=== PATIENT | female | born 1990 | race Caucasian/White ===

== ENCOUNTER → 2018-05-30 15:19 | Outpatient (CLI) | payer BC, OTHER, SELFPAY ==
[2018-05-30 15:29] LABS: Microscopic, Urine URINE MICROSCOPIC (MICROSCOPIC)
[2018-05-30 16:19] LABS: Basophils % 0.3 % (0.1-2.0); Eosinophils # 0.1 K/mm3 (0.0-0.4); Eosinophils % 0.8 % (0.1-12.0); Hematocrit 40.5 % (37.0-47.0); Hemoglobin 12.7 g/dL (12.2-16.2); Lymphocytes # 2.8 K/mm3 (0.7-4.5); Lymphocytes % 29.8 % (10-50); Mean Corpuscular HGB Conc 31.3 g/dL (31.8-35.4); Mean Corpuscular Hemoglobin 29.7 pg (27.0-31.2); Mean Corpuscular Volume 95.1 fl (81-99); Mean Platelet Volume 9.4 fl (7.4-10.4); Monocytes # 0.4 K/mm3 (0.1-1.0); Platelet Count 179 K/mm3 (142-424); Red Blood Count 4.26 M/mm3 (4.20-5.40); Red Cell Distribution Width 13.3 % (11.5-17.5); White Blood Count 9.3 K/mm3 (4.8-10.8)
[2018-05-30 17:17] LABS: Appearance,Urine SL CLOUDY (Clear); Bilirubin,Urine Negative (Negative); Blood, Urine TRACE-I (Negative); Color,Urine YELLOW (Yellow); Glucose,Urine (UA) Negative (Negative); Ketones,Urine Negative (Negative); Leukocyte Esterase,Urine Negative (Negative); Nitrate,Urine POSITIVE (Negative); Protein,Urine Negative (Negative); Specific Gravity, Urine 1.025 (1.005-1.030); Urobilinogen,Urine 0.2 EU/dl (0.2)
[2018-05-30 17:58] LABS: Alanine Aminotransferase 15 U/L (12-78); Albumin/Globulin Ratio 1.2 (1.1-1.8); Alkaline Phosphatase 79 U/L (46-116); Anion Gap 12.8 mEq/L (5-15); Aspartate Amino Transferase 7 U/L (15-37); Bilirubin,Total 0.4 mg/dL (0.2-1.0); Blood Urea Nitrogen 13 mg/dL (7-18); Calcium 9.2 mg/dL (8.5-10.1); Carbon Dioxide 30 mmol/L (21.0-32.0); Chloride 102 mmol/L (98-107); Creatinine,Serum 0.64 mg/dL (0.55-1.02); Estimated Glomerular Filt Rate 109 ml/min (>60); Free Thyroxine Index 2.9 ug/dL (5.93-13.13); GFR (African American) 132 ML/MIN (>60); Globulin 3.4 gm/dl (1.3-3.2); Glucose 93 mg/dL (74-106); Potassium 3.8 mmoL/L (3.5-5.1); Sodium 141 mmol/L (136-145); T4 (Thyroxine) 8.5 ug/dl (4.7-13.3); Thyroid Stimulating Hormone 1.62 uIU/ml (0.358-3.740); Total Protein,Serum 7.4 gm/dL (6.4-8.2); Triiodothryronine (T3) Uptake 34 % (31-39)
[2018-05-30 19:00] LABS: Erythrocyte Sedimentation Rate 18 mm/hr (0-20)
[2018-05-30 19:02] LABS: Bacteria,Urine 3+ /lpf
== END ==
PROVIDERS: Visit Provider Nurse Practitioner Family
DX: R63.6 Underweight (principal); N39.0 Urinary tract infection, site not specified; M25.50 Pain in unspecified joint
CPT/HCPCS: 36415; 80053; 81001; 84436; 84443; 84479; 85025; 85651; 87086; 87088; 87186

== ENCOUNTER → 2018-07-03 21:18 | Outpatient (CLI) | payer BC, SELFPAY | PROVIDERS: Visit Provider Nurse Practitioner Family | DX: J02.9 Acute pharyngitis, unspecified (principal) ==

== ENCOUNTER → 2018-10-12 11:52 | Outpatient (CLI) | payer BC, SELFPAY ==
[2018-10-13 18:06] LABS: Hep A Ab, IgM Negative (Negative); Hepatitis B Core Antibody IgM Negative (Negative); Hepatitis B Surface Antigen Negative (Negative)
[2018-10-13 18:30] LABS: HIV Screen 4th Generation wRfx Non Reactive (Non Reactive); Hepatitis C Antibody <0.1 s/co ratio (0.0-0.9); Rapid Plasma Reagin Ab Titer Non Reactive (NonRea<1:1)
[2018-10-15 07:01] LABS: Neisseria gonorrhoeae, NAA Negative (Negative)
== END ==
PROVIDERS: Visit Provider Nurse Practitioner Family
DX: N76.0 Acute vaginitis (principal)
CPT/HCPCS: 36415; 80074; 86592; 86703; 87491; 87591; G0432

== ENCOUNTER → 2019-08-29 14:19 | Outpatient (CLI) | payer MEDICAID, SELFPAY ==
--- NOTE | 2019-08-29 14:19 | US_ITS ---
PROCEDURE: US TRANSVAGINAL CLINICAL INDICATION: pelvic pain COMPARISON: No exams were available for comparison FINDINGS: UTERUS: 9cm x 6cmx 5cm with a combined endometrial thickness of 11.8mm LEFT OVARY: [id number] with a volume of 19.9ml. RIGHT OVARY: [id number] with a volume of 8.1ml. There are small bilateral ovarian follicles. Small amount of fluid is present in the cul-de-sac. IMPRESSION: Endometrial thickness upper limits of normal. Small amount of fluid in the cul-de-sac with small bilateral ovarian follicles. No dominant cyst or mass evident Dictated by: Satish Koroma MD 08/29/2019 15:51 Electronically signed by Satish Koroma MD in [place] 08/29/2019 15:51
== END ==
PROVIDERS: PCP Nurse Practitioner Family; Visit Provider Nurse Practitioner Obstetrics & Gynecology
DX: R10.2 Pelvic and perineal pain (principal)
CPT/HCPCS: 76830

== ENCOUNTER 2019-12-26 19:33 | Emergency (ER) | payer MEDICAID, SELFPAY ==
[2019-12-26 19:47] VITALS: BP 123/68; PULSE 80; RESP 16; TEMP 37.2; O2SAT 100; BMI 20.9
[2019-12-26 20:04] VITALS: BP 123/68; PULSE 80; RESP 16; TEMP 37.2; O2SAT 100; BMI 20.9
[2019-12-26 20:05] LABS: Apearance,Urine Cloudy (Clear); Color,Urine Dark Yellow (Yellow)
[2019-12-26 20:06] LABS: Bilirubin,Urine Negative (Negative); Blood, Urine Trace (Negative); Glucose,Urine (UA) Negative (Negative); Ketones,Urine Negative (Negative); PH,Urine 5.5 (5.0-8.5); Protein,Urine Negative (Negative); UTC Leukocyte Esterase,Urine Negative (Negative); UTC Nitrate,Urine Positive (Negative); Urobilinogen,Urine 1 EU/dl (0.2)
--- NOTE | 2019-12-26 20:11 | HMH.EDUTC ---
[facility] [place] Clinical Impression: UTI (urinary tract infection) Qualifiers: Urinary tract infection type: site unspecified Hematuria presence: without hematuria Qualified Code(s): N39.0 - Urinary tract infection, site not specified Cellulitis Qualifiers: Site of cellulitis: unspecified site Qualified Code(s): L03.90 - Cellulitis, unspecified Disposition: Home, Self-Care Condition on Discharge: Good Instructions: DI for Cellulitis -- Adult, Trimethoprim/Sulfamethoxazole (Alternative Therapy), Urinary Tract Infection, Cellulitis, DI for Urinary Tract Infection (UTI) Additional Instructions: *Increase fluids. Water not Soda or Tea *Start antibiotic immediately and be sure to take as ordered for the FULL length of time although you should start to see improvement over the next 48 hours *Pyridium as needed Remember this medication will turn your urine [place]. This is normal but it will stain what ever it gets on *You should not use Pyridium for more than 48 hours. If so , follow up with your primary physician to review urine culture and ensure that antibiotic is adequate for infection *Be SURE to follow up anytime for new or worsening symptoms with your family doctor. AND in 48 hours for urine culture results with your family doctor, if you do not have a doctor then you may call back to the [facility] for urine culture results and further treatment. We do recommend that you choose and establish care with a Primary Care Physician. AND follow up with them in 10-14 days to repeat UA to ensure infection is resolved and blood no longer present *Be sure to let your PCP know that we sent urine cultures from the [facility] so they can follow up to ensure that you area the on the correct antibiotic Call your doctor office and make appointment for 48 hours (2 days from today) to follow up and get the results of your urine culture and further treatment You was given outpatient order for venous doppler make sure that you answer your phone and bring this order with you when they call Straight to ER if any life threatening symptoms Prescriptions: Sulfamethoxazole/Trimethoprim [Bactrim DS tablet] 1 each PO BID 10 Days #20 tab Transmission Status: Received by [facility] #[id number] Phenazopyridine HCl [Pyridium 200mg Tablet] 200 pow PO TID #6 tab Transmission Status: Received by [facility] #[id number] Referrals: Mariana,Janay L, [employer] INSPECTOR [Primary Care Provider] - Time of Disposition: 20:32 Medical Decision Making - Joel Inquiry Pt receiving controlled substance: No Joel was queried for this patient: No Vital Signs: 12/26/19 19:47 12/26/19 20:04 Temperature 98.9 F 98.9 F Temperature Source Oral Oral Pulse Rate [Left Radial] 80 80 Respiratory Rate 16 16 Blood Pressure [Right Arm] 123/68 123/68 Blood Pressure Mean [Right Arm] 86 86 Blood Pressure Source [Right Arm] Automatic Cuff Automatic Cuff Blood Pressure Position [Right Arm] Sitting Sitting 02 Sat by Pulse Oximetry 100 100 Oxygen Delivery Method Room Air Room Air - Lab Data Lab results reviewed: Yes: I reviewed the patient's lab results. Lab Results 12/26/19 19:55: Urine Color Dark yellow, Urine Appearance Cloudy, Urine pH 5.5, Ur Specific [place] 1.020, Urine Protein Negative, Urine Glucose (UA) Negative, Urine Ketones Negative, Urine Blood Trace, Urine Nitrate Positive A, Urine Bilirubin Negative, Urine Urobilinogen 1, Ur Leukocyte Esterase Negative Orders (Tests/Meds): ED MEDICATIONS Discontinued Medications Generic Name Dose Route Start Last Admin Trade Name Freq PRN Reason Stop Dose Admin Methylprednisolone Sodium Succinate 125 mg 12/26/19 20:11 Solu-Medrol 125mg/2ml Vial IM 12/26/19 20:12 ONCE ONE ORDERS Category Date Time Status Urine Culture Stat Micro 12/26/19 20:06 [place] [facility] [place] - General Stated complaint: Poss UTI, rash on leg Time Seen by Provider: 12/26/19 20:11 Mode of Arrival: Ambulatory Source of Information: Gwen
[2019-12-26 20:30] VITALS: BP 123/68; PULSE 80; RESP 16; TEMP 37.2; O2SAT 100
== END 2019-12-26 20:35 | disposition home or self-care (01) ==
PROVIDERS: Emergency Provider Nurse Practitioner; PCP Nurse Practitioner Family
DX: N30.00 Acute cystitis without hematuria (principal); L03.116 Cellulitis of left lower limb; Z88.0 Allergy status to penicillin; F41.8 Other specified anxiety disorders; F17.210 Nicotine dependence, cigarettes, uncomplicated
CPT/HCPCS: 81003; 87086; 87088; 87186; 96372; 99202

== ENCOUNTER → 2019-12-27 11:37 | Outpatient (CLI) | payer MEDICAID, SELFPAY ==
--- NOTE | 2019-12-27 | CA_ITS ---
APPROVED REPORT Right Lower Extremity Venous Study for DVT. 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 States she noticed red streaking and rash on lateral aspect of right calf 12/23/19. She states there is a burning sensation present. Vein Imaging CFV (R): compressive, spontaneous, phasic, augmentation FEM (R): compressive, spontaneous, phasic, augmentation POP (R): compressive, spontaneous, phasic, augmentation PTV (R): Compressible GSV (R): compressive, spontaneous, phasic, augmentation SSV (R): Compressible Peroneals (R):Compressible GAS (R): Compressible Findings No evidence of DVT or superficial thrombophlebitis in the veins scanned of the right lower extremity. Conclusion No evidence of DVT or superficial thrombophlebitis in the veins scanned of the right lower extremity. Electronically signed by : Satish Koroma MD 12/30/2019 17:23:44
== END ==
PROVIDERS: PCP Nurse Practitioner Family; Referring Provider Nurse Practitioner Family; Visit Provider Nurse Practitioner Family
DX: M79.661 Pain in right lower leg (principal)
CPT/HCPCS: 93971

== ENCOUNTER 2020-03-09 13:02 | Emergency (ER) | payer MEDICAID, SELFPAY ==
[2020-03-09 13:17] VITALS: BP 112/72; PULSE 83; RESP 14; TEMP 37; O2SAT 98
[2020-03-09 13:31] LABS: Apearance,Urine Cloudy (Clear); Color,Urine Amber (Yellow); Glucose,Urine (UA) Negative (Negative); Protein,Urine 1+ (Negative)
[2020-03-09 13:32] LABS: Bilirubin,Urine 1+ (Negative); Blood, Urine Trace (Negative); Ketones,Urine Negative (Negative); UTC Leukocyte Esterase,Urine 1+ (Negative); UTC Nitrate,Urine Positive (Negative); Urobilinogen,Urine 1 EU/dl (0.2)
--- NOTE | 2020-03-09 13:37 | HMH.EDUTC ---
[facility] [place] Clinical Impression: UTI (urinary tract infection) Qualifiers: Urinary tract infection type: site unspecified Hematuria presence: without hematuria Qualified Code(s): N39.0 - Urinary tract infection, site not specified Disposition: Home, Self-Care Condition on Discharge: Good Instructions: Urinary Tract Infection, DI for Urinary Tract Infection (UTI) Additional Instructions: Drink plenty of fluids. Take tylenol or ibuprofen for pain or fever. Take the medications as directed. Follow up with your regular doctor. GO TO THE ER FOR ANY WORSENING SYMPTOMS The pyridium will make your urine turn orange, this is an expected side effect. It will stain your clothes if it comes into contact with them. Prescriptions: Ondansetron [Zofran 4mg ODT] 4 mg PO Q8HP PRN #20 tab.rapdis PRN Reason: Nausea Transmission Status[id number] Ciprofloxacin HCl [Cipro 500mg Tab] 500 mg PO BID 7 Days #14 tab Transmission Status: [id number] Phenazopyridine HCl [Pyridium 200mg Tablet] 200 pow PO TID #6 tab Transmission Status: [id number] Referrals: Janay Peña APRN [Primary Care Provider] - Time of Disposition: 13:40 Medical Decision Making - Medical Records Medical records reviewed: No: I reviewed the patient's medical records. - Joel Inquiry Pt receiving controlled substance: No Vital Signs: 03/09/20 13:17 03/09/20 13:42 Temperature 98.6 F 98.6 F Temperature Source Oral Pulse Rate 83 Pulse Rate [Left Brachial] 83 Respiratory Rate 14 14 Blood Pressure 112/72 Blood Pressure [Left Arm] 112/72 Blood Pressure Mean [Left Arm] 85 Blood Pressure Source [Left Arm] Automatic Cuff Blood Pressure Position [Left Arm] Sitting 02 Sat by Pulse Oximetry 98 Oxygen Delivery Method Room Air - Lab Data Lab results reviewed: Yes: I reviewed the patient's lab results. Lab Results 03/09/20 13:23: Urine Color Janny, Urine Appearance Cloudy, Urine pH 7.0, Ur Specific [place] 1.020, Urine Protein 1+, Urine Glucose (UA) Negative, Urine Ketones Negative, Urine Blood Trace, Urine Nitrate Positive A, Urine Bilirubin 1+ A, Urine Urobilinogen 1, Ur Leukocyte Esterase 1+ A [facility] [place] HPI - General Stated complaint: uti Time Seen by Provider: 03/09/20 13:20 Mode of Arrival: Ambulatory Source of Information: Patient Limitations: No Limitations Description of Symptoms (Recalled from Triage Doc. by RN): PATIENT C/O URINARY HESITANCY, BURNING WITH URINATION, AND FOUL SMELLING URINE SINCE YESTERDAY HEENT Symptoms (Recalled from RN notes): No Resp Symptoms (Recalled from RN notes): No Skin Symptoms (Recalled from RN notes): No MS Symptoms (Recalled from RN notes): No Functional Status (Recalled from RN notes): WNL - History of Present Illness Provider Complaint: She c/o dysuria and low back pain since yesterday. - Related Data Home Medications Medication Instructions Recorded Confirmed Buspirone HCl [Buspar 10mg 10 mg PO BID 03/09/20 03/09/20 tablet] Sertraline HCl [Zoloft 50mg tablet] 50 mg PO DAILY 03/09/20 03/09/20 Previous Rx's Medication Instructions Recorded Ciprofloxacin HCl [Cipro 500mg 500 mg PO BID 7 Days #14 tab 03/09/20 Tab] Ondansetron [Zofran 4mg ODT] 4 mg PO Q8HP PRN #20 tab.rapdis 03/09/20 Phenazopyridine HCl [Pyridium 200 pow PO TID #6 tab 03/09/20 200mg Tablet] Allergies Allergy/AdvReac Type Severity Reaction Status Date / Time Penicillins Allergy Intermediate I-HIVES Verified 09/30/19 11:32 - Worker's Comp Is this a Worker's Comp case?: No [facility] History - Hepatitis A Screen Drug use history?: No High risk sexual behaviors?: No History of sexually transmitted infection?: No Currently employed?: No Childcare worker?: No Do you have indoor plumbing?: Yes Do you have electricity?: Yes Attestation statement:: This patient has been screened for Hepatitis
[2020-03-09 13:42] VITALS: BP 112/72; PULSE 83; RESP 14; TEMP 37; O2SAT 98
== END 2020-03-09 13:45 | disposition home or self-care (01) ==
PROVIDERS: Emergency Provider Nurse Practitioner Family; PCP Nurse Practitioner Family
DX: N30.00 Acute cystitis without hematuria (principal); F41.8 Other specified anxiety disorders; F17.210 Nicotine dependence, cigarettes, uncomplicated; Z88.0 Allergy status to penicillin
CPT/HCPCS: 81003; 87086; 87088; 87186; 99201

== ENCOUNTER 2020-06-11 13:42 | Emergency (ER) | payer MEDICAID, SELFPAY ==
[2020-06-11 14:52] VITALS: BP 105/58; PULSE 74; RESP 14; TEMP 37; O2SAT 96; BMI 16.6
--- NOTE | 2020-06-11 15:11 | HMH.EDUTC ---
[facility] [place]ression: Viral syndrome Disposition: Home, Self-Care Condition on Discharge: Good Instructions: DI for Viral Syndrome Additional Instructions: Drink plenty of fluids. Take tylenol for pain or fever. Take the medications as directed. Follow up with your regular doctor. GO TO THE ER FOR ANY WORSENING SYMPTOMS Prescriptions: Ondansetron [Zofran 4mg ODT] 4 mg PO Q8HP PRN #12 tab.rapdis PRN Reason: Nausea Transmission Status: Received by [facility] [employer] [facility] # Azithromycin [Z-Rudolph 250mg Tab*] 250 mg PO UD DOSE PK #6 tab Transmission Status: Received by [employer] [facility] # Referrals: Janay Peña APRN [Primary Care Provider] - Time of Disposition: 15:17 Medical Decision Making - Medical Records Medical records reviewed: No: I reviewed the patient's medical records. - Joel Inquiry Pt receiving controlled substance: No Vital Signs: 06/11/20 14:52 06/11/20 15:27 Temperature 98.6 F 98.6 F Temperature Source Oral Pulse Rate 74 Pulse Rate [Right Brachial] 74 Respiratory Rate 14 14 Blood Pressure 105/58 L Blood Pressure [Right Arm] 105/58 L Blood Pressure Mean [Right Arm] 73 Blood Pressure Source [Right Arm] Automatic Cuff Blood Pressure Position [Right Arm] Sitting 02 Sat by Pulse Oximetry 96 Oxygen Delivery Method Room Air [facility] [place] - General Stated complaint: Cough, fever, vomiting Time Seen by Provider: 06/11/20 15:11 Mode of Arrival: Ambulatory Source of Information: Patient Limitations: No Limitations Description of Symptoms (Recalled from Triage Doc. by RN): PATIENT C/O HEADACHE X 1 WEEK, VOMITING, DECREASED APPETITE, NO TASTE/SMELL. REQUESTING COVID TEST HEENT Symptoms (Recalled from RN notes): Yes Resp Symptoms (Recalled from RN notes): No Skin Symptoms (Recalled from RN notes): No MS Symptoms (Recalled from RN notes): No Functional Status (Recalled from RN notes): WNL - History of Present Illness Provider Complaint: She is here needing a covid test. She reports a head ache on and off all week. And she has had decreased sense of taste and smell. - Related Data Home Medications Medication Instructions Recorded Confirmed Buspirone HCl [Buspar 10mg 10 mg PO BID 03/09/20 03/09/20 tablet] Sertraline HCl [Zoloft 50mg tablet] 50 mg PO DAILY 03/09/20 03/09/20 Previous Rx's Medication Instructions Recorded metronidazole 500 mg tablet 500 mg PO BID 7 Days #14 tab 06/08/20 Azithromycin [Z-Rudolph 250mg Tab*] 250 mg PO UD DOSE PK #6 tab 06/11/20 Ondansetron [Zofran 4mg ODT] 4 mg PO Q8HP PRN #12 tab.rapdis 06/11/20 Allergies Allergy/AdvReac Type Severity Reaction Status Date / Time Penicillins Allergy Intermediate I-HIVES Verified 04/30/20 09:02 - Worker's Comp Is this a Worker's Comp case?: No [facility] History - Hepatitis A Screen Drug use history?: No High risk sexual behaviors?: No History of sexually transmitted infection?: No Currently employed?: No Childcare worker?: No Do you have indoor plumbing?: Yes Do you have electricity?: Yes Attestation statement:: This patient has been screened for Hepatitis A risk factors. I have reviewed the patient's past medical history: Yes Medical History: Reports:: Anxiety, Depression Laterality Cases: Bilateral: Tonsillectomy Other Surgeries: Yes: Tubal Ligation Amputation: No Fractures: No Comment: Breast implants - Social History Smoking Status: Current every day smoker Tobacco Type: cigarettes # Packs/Day (cigarettes): 1 Alcohol Intake: never Alcohol Intake Frequency:: other Substance Use Type: denies use, marijuana, crack/cocaine Occupational Status: other Housing: house Household Members: family Comment: -nothing current. -she did do coke a few weeks ago at a [employer]. -first time in 18 years - Psychiatric History Pschychiatric History:: Reports:: Anxiety, Depression Family Hx:: Cancer, Diabetes, Heart Attack, Hypertensio
[2020-06-11 15:27] VITALS: BP 105/58; PULSE 74; RESP 14; TEMP 37; O2SAT 96
== END 2020-06-11 15:30 | disposition home or self-care (01) ==
PROVIDERS: Emergency Provider Nurse Practitioner Family; PCP Nurse Practitioner Family
DX: B34.9 Viral infection, unspecified (principal)
CPT/HCPCS: 99201; U0003

== ENCOUNTER → 2020-12-30 07:49 | Outpatient (CLI) | payer MEDICAID, SELFPAY ==
--- NOTE | 2020-12-30 08:10 | US_ITS ---
PROCEDURE: US GALLBLADDER CLINICAL INDICATION: RUQ PAIN COMPARISON: No exams were available for comparison FINDINGS: Pancreas: Unremarkable/Not well seen Liver: Unremarkable. There is appropriate direction of blood flow within a non dilated portal vein. Right kidney: Unremarkable appearing. No hydronephrosis. Gallbladder: No stones are evident. There is no gallbladder wall thickening. Common duct is normal in diameter measuring 2 millimeters. Small amount of sludge noted in the gallbladder.. IMPRESSION: Small amount of sludge in the gallbladder. Otherwise unremarkable gallbladder ultrasound. Dictated by: Polo Chow MD 12/30/2020 09:38 Polo Chow MD in [place] 12/30/2020 09:38
[2020-12-30 09:10] LABS: Basophils # 0.1 K/mm3 (0-0.2); Eosinophils # 0.2 K/mm3 (0.0-0.4); Eosinophils % 3.1 % (0.1-12.0); Hematocrit 37.1 % (37.0-47.0); Hemoglobin 12.7 g/dL (12.2-16.2); Lymphocytes # 1.7 K/mm3 (0.7-4.5); Lymphocytes % 32.4 % (10-50); Mean Corpuscular HGB Conc 34.3 g/dL (31.8-35.4); Mean Corpuscular Hemoglobin 30.7 pg (27.0-31.2); Mean Corpuscular Volume 89.7 fl (81-99); Mean Platelet Volume 9.6 fl (7.4-10.4); Monocytes # 0.3 K/mm3 (0.1-1.0); Monocytes % 5.2 % (1.7-9.3); Neutrophils % 58.2 % (37.0-80.0); Platelet Count 158 K/mm3 (142-424); Red Blood Count 4.13 M/mm3 (4.20-5.40); Red Cell Distribution Width 12.5 % (11.5-17.5); White Blood Count 5.2 K/mm3 (4.8-10.8)
[2020-12-30 10:44] LABS: Alanine Aminotransferase 10 U/L (12-78); Albumin/Globulin Ratio 1.5 (1.1-1.8); Alkaline Phosphatase 54 U/L (38-126); Amylase 54 U/L (30-110); Anion Gap 8.2 mEq/L (5-15); Aspartate Amino Transferase 18 U/L (14-36); Bilirubin,Total 0.5 mg/dl (0.2-1.3); Blood Urea Nitrogen 11 mg/dl (7-17); Calcium 9.1 mg/dl (8.4-10.2); Carbon Dioxide 30 mmol/L (22.0-30.0); Chloride 105 mmol/L (98-107); Estimated Glomerular Filt Rate 97 ml/min (>60); GFR (African American) 117 ML/MIN (>60); Globulin 2.6 g/dL (1.3-3.2); Glucose 85 mg/dl (74-100); Lipase 75 U/L (23-300); Potassium 4.2 mmoL/L (3.5-5.1); Sodium 139 mmol/L (136-145); Total Protein,Serum 6.6 g/dl (6.3-8.2)
== END ==
PROVIDERS: PCP Nurse Practitioner Family; Visit Provider Internal Medicine Adolescent Medicine
DX: R10.11 Right upper quadrant pain (principal)
CPT/HCPCS: 36415; 76705; 80053; 82150; 83690; 85025

== ENCOUNTER → 2021-01-13 10:27 | Outpatient (CLI) | payer MEDICAID, SELFPAY ==
--- NOTE | 2021-01-13 10:30 | NM_ITS ---
PROCEDURE: NM HEPATOBILIARY W PHARM CLINICAL INDICATION: RUQ PAIN Right upper quadrant pain COMPARISON: No exams were available for comparison TECHNIQUE: DOSE: 8.12 mCi technetium Choletec 1.2 mcg of CCK FINDINGS: Homogeneous activity is present within the hepatic parenchyma. Activity is present in the gallbladder by 5 minutes. Activity is present in the small bowel by 5 minutes. The gallbladder ejection fraction is calculated to be 87 percent. CCK-The patient reported symptoms of pinching during CCK infusion. IMPRESSION: Unremarkable hepatobiliary scan with normal gallbladder ejection fraction Dictated by: Satish Koroma MD 01/13/2021 13:25 Satish Koroma MD in [place] 01/13/2021 13:25
== END ==
PROVIDERS: PCP Nurse Practitioner Family; Visit Provider Internal Medicine Adolescent Medicine
DX: R10.11 Right upper quadrant pain (principal)
CPT/HCPCS: 78227; A9537; J2805

== ENCOUNTER 2021-02-24 07:58 | Emergency (ER) | payer MEDICAID, SELFPAY ==
[2021-02-24 07:59] VITALS: BP 103/59; PULSE 64; RESP 18; TEMP 36.6; O2SAT 97; BMI 21.2
[2021-02-24 08:14] LABS: Microscopic, Urine URINE MICROSCOPIC (MICROSCOPIC)
[2021-02-24 08:17] LABS: Appearance,Urine CLEAR (Clear); Bilirubin,Urine Negative (Negative); Blood, Urine 3+ (Negative); Color,Urine YELLOW (Yellow); Glucose,Urine (UA) Negative (Negative); Ketones,Urine Negative (Negative); Leukocyte Esterase,Urine 2+ (Negative); Nitrate,Urine POSITIVE (Negative); Protein,Urine 2+ (Negative); Specific Gravity, Urine >= 1.030 (1.005-1.030)
[2021-02-24 08:19] LABS: Urine Pregnancy, HCG Qual. Negative (Negative)
[2021-02-24 08:29] LABS: Bacteria,Urine Trace /lpf; RBC,Urine 20-50 #/hpf (0-3)
--- NOTE | 2021-02-24 08:29 | HMH.EDUROGF ---
ED Disposition Clinical Impression: Acute UTI Disposition: Home, Self-Care Condition on Discharge: Good Instructions: DI for Urinary Tract Infection (UTI) Prescriptions: Nitrofurantoin Monohyd/M-Cryst [Macrobid 100 mg Capsule] 100 mg PO BID #14 cap Transmission Status: Pending to [facility] [employer] #[id number] Referrals: Vaibhav Ash MD [Primary Care Provider] - 3 days - Critical Care Critical Care Time: No Attestation: On 02/24/21, the high probability of a clinically significant, sudden or life threatening deterioration of the following system(s) required my full and direct attention, intervention and personal management. The time I documented below is in addition to time spent performing reported procedures but includes the following listed in this critical care notation. Medical Decision Making - Medical Records Medical records reviewed: Yes: I reviewed the patient's medical records. - Joel Inquiry Pt receiving controlled substance: No Vital Signs: 02/24/21 07:59 Temperature 97.8 F Temperature Source Oral Pulse Rate [Right] 64 Respiratory Rate 18 Blood Pressure [Right Arm] 103/59 L Blood Pressure Mean [Right Arm] 73 02 Sat by Pulse Oximetry 97 Oxygen Delivery Method Room Air - Lab Data Lab results reviewed: Yes: I reviewed the patient's lab results. Lab Results 02/24/21 08:04: Urine Color Yellow, Urine Appearance Clear, Urine pH 6.0, Ur Specific [place] >= 1.030, Urine Protein 2+, Urine Glucose (UA) Negative, Urine Ketones Negative, Urine Blood 3+, Urine Nitrate Positive, Urine Bilirubin Negative, Urine Urobilinogen 1.0, Ur Leukocyte Esterase 2+ A 02/24/21 08:04: Urine HCG, Qual Negative Orders (Tests/Meds): ED MEDICATIONS Discontinued Medications Generic Name Dose Route Start Last Admin Trade Name Freq PRN Reason Stop Dose Admin Nitrofurantoin Macrocrystals 100 mg 02/24/21 08:26 Nitrofurantoin 100mg Capsule PO 02/24/21 08:27 ONCE ONE ORDERS Category Date Time Status Urinalysis and Microscopic Stat Lab 02/24/21 08:04 Results Urine Culture Stat Micro 02/24/21 08:04 Received Medical Decision Narrative: Patient with UTI here, given Macrobid. She appears well-hydrated. No flank pain, fever that would suggest pyelonephritis. Will discharge home with prescription for Macrobid and advised follow-up with PCP within the next several days for reevaluation. test negative. Nontender, benign abdomen. Female Urogenital HPI - General Chief complaint: Urogenital-Female Stated complaint: possible kidney infection, blood in urine Time Seen by Provider: 02/24/21 08:29 Mode of Arrival: Family Vehicle Limitations: No Limitations Description of Symptoms (Recalled from ER Triage Doc. by RN): Patient c/o painful urination with hematuria for the last three days. Patient denies and fevers and bodyaches. Patient reports history of UTI's. - History of Present Illness HPI Narrative: 30-year-old female with no significant past medical history who presents to the emergency department for foul-smelling urine, dysuria and decreased appetite for the last 3 days. She has had urinary tract infections before and this feels similarly. Yesterday she noticed some blood in her urine so became concerned about that. She has had a bilateral tubal ligation, no other abdominal pelvic surgeries. She denies any flank pain, vomiting, fever. No exacerbating or alleviating factors. No change in bowel habits. : No - Related Data Home Medications Medication Instructions Recorded Confirmed Buspirone HCl [Buspar 10mg 10 mg PO BID 03/09/20 02/18/21 tablet] Previous Rx's Medication Instructions Recorded sertraline 50 mg tablet 50 mg PO DAILY #30 tab 08/05/20 Nitrofurantoin Monohyd/M-Cryst 100 mg PO BID #14 cap 02/24/21 [Macrobid 100 mg Capsule] Allergies Allergy/AdvReac Type Severity Reaction Status Date / Time Penicillins Allergy Int
[2021-02-24 08:30] VITALS: BP 103/59; PULSE 64; RESP 18; TEMP 36.5; O2SAT 97
== END 2021-02-24 08:40 | disposition home or self-care (01) ==
PROVIDERS: Emergency Provider Emergency Medicine; PCP Internal Medicine Adolescent Medicine
DX: N30.01 Acute cystitis with hematuria (principal); F41.8 Other specified anxiety disorders; Z88.0 Allergy status to penicillin; Z79.899 Other long term (current) drug therapy
CPT/HCPCS: 81001; 81025; 87086; 87088; 87186; 99282

== ENCOUNTER → 2021-03-08 11:05 | Outpatient (CLI) | payer MEDICAID, SELFPAY | PROVIDERS: Visit Provider Surgery | DX: Z20.822 Contact with and (suspected) exposure to COVID-19 (principal) | CPT/HCPCS: U0003 ==

== ENCOUNTER 2021-03-11 18:08 | Emergency (ER) | payer MEDICAID, SELFPAY ==
[2021-03-11 20:59] VITALS: BP 00/00; PULSE 0; RESP 0; TEMP -17.7; TEMP 0
== END 2021-03-11 21:00 | disposition left against medical advice (07) ==
LOC: UTC 18:12
PROVIDERS: Emergency Provider Nurse Practitioner Family; PCP Internal Medicine Adolescent Medicine
DX: Z53.21 Procedure and treatment not carried out due to patient leaving prior to being seen by health care provider (principal)

== ENCOUNTER → 2021-03-23 17:40 | Outpatient (CLI) | payer MEDICAID, SELFPAY ==
[2021-03-23 19:03] LABS: Chloride 103 mmol/L (98-107); Potassium 3.8 mmoL/L (3.5-5.1); Sodium 139 mmol/L (136-145)
[2021-03-23 19:06] LABS: Alanine Aminotransferase 21 U/L (12-78); Albumin Level 3.6 g/dl (3.5-5.0); Albumin/Globulin Ratio 1.3 (1.1-1.8); Alkaline Phosphatase 68 U/L (38-126); Aspartate Amino Transferase 27 U/L (14-36); Bilirubin,Total 0.6 mg/dl (0.2-1.3); Blood Urea Nitrogen 13 mg/dl (7-17); Calcium 8.8 mg/dl (8.4-10.2); Carbon Dioxide 27 mmol/L (22.0-30.0); Estimated Glomerular Filt Rate 115 ml/min (>60); GFR (African American) 139 ML/MIN (>60); Globulin 2.7 g/dL (1.3-3.2); Glucose 173 mg/dl (74-100); Total Protein,Serum 6.3 g/dl (6.3-8.2)
[2021-03-23 19:09] LABS: Hematocrit 41.8 % (37.0-47.0); Hemoglobin 13.2 g/dL (12.2-16.2); Lymphocytes # 0.9 K/mm3 (0.7-4.5); Lymphocytes % 10.6 % (10-50); Mean Corpuscular HGB Conc 31.5 g/dL (31.8-35.4); Mean Corpuscular Hemoglobin 29.6 pg (27.0-31.2); Mean Corpuscular Volume 93.9 fl (81-99); Mean Platelet Volume 11.1 fl (7.4-10.4); Monocytes # 0.2 K/mm3 (0.1-1.0); Monocytes % 2.2 % (1.7-9.3); Neutrophils % 87.2 % (37.0-80.0); Platelet Count 226 K/mm3 (142-424); Red Blood Count 4.45 M/mm3 (4.20-5.40); Red Cell Distribution Width 13.3 % (11.5-17.5)
[2021-03-23 19:12] LABS: MANUAL DIFFERENTIAL MANUAL DIFFERENTIAL (MANUAL DIFF)
[2021-03-23 20:13] LABS: Anion Gap 12.8 mEq/L (5-15)
[2021-03-23 20:27] LABS: Lymphocytes % 14 % (10-50); Monocytes % 2 % (2-9); Neutrophils % 84 % (42-76); Platelet Estimate Normal; Total Cells Counted 100
== END ==
PROVIDERS: Visit Provider Nurse Practitioner Family
DX: R30.0 Dysuria (principal); R34 Anuria and oliguria
CPT/HCPCS: 80053; 85007; 85025; 87086; 87088; 87186

== ENCOUNTER → 2021-05-22 15:57 | Outpatient (CLI) | payer MEDICAID, SELFPAY | PROVIDERS: PCP Internal Medicine Adolescent Medicine; Visit Provider Nurse Practitioner Family | DX: Z20.822 Contact with and (suspected) exposure to COVID-19 (principal); U07.1 COVID-19 | CPT/HCPCS: C9803; U0003; U0005 ==

== ENCOUNTER 2021-09-02 13:17 | Outpatient (CLI) | payer MEDICAID, SELFPAY ==
[2021-09-02 13:45] VITALS: BP 155/91; PULSE 73; RESP 18; TEMP 36.3; O2SAT 99
[2021-09-02 14:35] VITALS: BP 96/68; PULSE 72; RESP 18; O2SAT 100
== END 2021-09-02 14:35 | disposition home or self-care (01) ==
LOC: INF 13:18
PROVIDERS: PCP Internal Medicine Adolescent Medicine; Visit Provider Internal Medicine Adolescent Medicine
DX: N39.0 Urinary tract infection, site not specified (principal); Z16.12 Extended spectrum beta lactamase (ESBL) resistance
CPT/HCPCS: 96365; J1335

== ENCOUNTER → 2021-09-03 11:33 | Outpatient (CLI) | payer MEDICAID, SELFPAY ==
[2021-09-03 11:57] VITALS: BP 113/68; PULSE 65; RESP 16; TEMP 36.8; O2SAT 99
[2021-09-03 12:23] VITALS: BP 113/64; PULSE 63; RESP 16; TEMP 36.9; O2SAT 100
== END ==
PROVIDERS: PCP Internal Medicine Adolescent Medicine; Visit Provider Internal Medicine Adolescent Medicine
DX: N39.0 Urinary tract infection, site not specified (principal); Z16.12 Extended spectrum beta lactamase (ESBL) resistance
CPT/HCPCS: 96365; J1335

== ENCOUNTER → 2021-09-04 09:43 | Outpatient (CLI) | payer MEDICAID, SELFPAY ==
[2021-09-04 10:04] VITALS: BP 99/66; PULSE 90; RESP 18; TEMP 36.9; O2SAT 97
--- NOTE | 2021-09-04 10:35 | PC.NURSE ---
pt on day 3- needs new iv requesting this one be taken out and given a break and them restart new one tomorrow- iv d/c a this time. cathlon tip intact.
== END ==
PROVIDERS: PCP Internal Medicine Adolescent Medicine; Visit Provider Internal Medicine Adolescent Medicine
DX: N39.0 Urinary tract infection, site not specified (principal); Z16.12 Extended spectrum beta lactamase (ESBL) resistance
CPT/HCPCS: 96365; J1335

== ENCOUNTER 2021-09-05 11:19 | Outpatient (CLI) | payer MEDICAID, SELFPAY ==
[2021-09-05 11:30] VITALS: BP 121/76; PULSE 79; RESP 18; TEMP 36.7; O2SAT 100
[2021-09-05 12:15] VITALS: BP 121/86; PULSE 81; RESP 18
== END 2021-09-05 12:15 | disposition home or self-care (01) ==
LOC: INF 11:19
PROVIDERS: PCP Internal Medicine Adolescent Medicine; Visit Provider Internal Medicine Adolescent Medicine
DX: N39.0 Urinary tract infection, site not specified (principal); Z16.12 Extended spectrum beta lactamase (ESBL) resistance
CPT/HCPCS: 96365; J1335

== ENCOUNTER 2021-09-06 12:33 | Outpatient (CLI) | payer MEDICAID, SELFPAY ==
[2021-09-06 12:48] VITALS: BP 104/62; PULSE 69; RESP 18; TEMP 36.4; O2SAT 98
[2021-09-06 13:35] VITALS: BP 103/69; PULSE 71; RESP 16; TEMP 36.4; O2SAT 98
== END 2021-09-06 13:40 | disposition home or self-care (01) ==
PROVIDERS: PCP Internal Medicine Adolescent Medicine; Visit Provider Internal Medicine Adolescent Medicine
DX: N39.0 Urinary tract infection, site not specified (principal); Z16.12 Extended spectrum beta lactamase (ESBL) resistance
CPT/HCPCS: 96365; J1335

== ENCOUNTER → 2022-02-13 12:28 | Outpatient (CLI) | payer MEDICAID, SELFPAY ==
[2022-02-13 12:47] LABS: Basophils # 0.1 K/mm3 (0-0.2); Basophils % 1.5 % (0.1-2.0); Eosinophils # 0.1 K/mm3 (0.0-0.4); Eosinophils % 2.1 % (0.1-12.0); Hematocrit 39.7 % (37.0-47.0); Lymphocytes # 1.4 K/mm3 (0.7-4.5); Lymphocytes % 28.2 % (10-50); Mean Corpuscular HGB Conc 32.7 g/dL (31.8-35.4); Mean Corpuscular Hemoglobin 30.6 pg (27.0-31.2); Mean Corpuscular Volume 93.4 fl (81-99); Mean Platelet Volume 9.9 fl (7.4-10.4); Monocytes # 0.3 K/mm3 (0.1-1.0); Monocytes % 5.4 % (1.7-9.3); Neutrophils # 3.2 K/mm3 (1.8-7.8); Neutrophils % 62.9 % (37.0-80.0); Platelet Count 201 K/mm3 (142-424); Red Blood Count 4.25 M/mm3 (4.20-5.40); Red Cell Distribution Width 12.9 % (11.5-17.5); White Blood Count 5.1 K/mm3 (4.8-10.8)
[2022-02-13 12:53] LABS: Chloride 103 mmol/L (98-107); Potassium 4.2 mmoL/L (3.5-5.1); Sodium 137 mmol/L (136-145)
[2022-02-13 12:56] LABS: Alanine Aminotransferase 12 U/L (12-78); Albumin Level 4.2 g/dl (3.5-5.0); Albumin/Globulin Ratio 1.6 (1.1-1.8); Alkaline Phosphatase 51 U/L (38-126); Anion Gap 7.2 mEq/L (5-15); Aspartate Amino Transferase 17 U/L (14-36); Bilirubin,Total 0.2 mg/dl (0.2-1.3); Blood Urea Nitrogen 10 mg/dl (7-17); Calcium 9.2 mg/dl (8.4-10.2); Carbon Dioxide 31 mmol/L (22.0-30.0); Estimated Glomerular Filt Rate 96 ml/min (>60); GFR (African American) 117 ML/MIN (>60); Globulin 2.6 g/dL (1.3-3.2); Glucose 82 mg/dl (74-100); Total Protein,Serum 6.8 g/dl (6.3-8.2)
== END ==
PROVIDERS: PCP Internal Medicine Adolescent Medicine; Visit Provider Nurse Practitioner Family
DX: R10.823 Right lower quadrant rebound abdominal tenderness (principal)
CPT/HCPCS: 36415; 80053; 85025

== ENCOUNTER → 2022-02-13 15:51 | Outpatient (CLI) | payer MEDICAID, SELFPAY ==
--- NOTE | 2022-02-13 15:59 | CT_ITS ---
PROCEDURE INFORMATION: Exam: CT Abdomen And Pelvis With Contrast Exam date and time: 02/13/2022 5:49 PM Age: 31 years old Clinical indication: Abdominal pain; Acute; Additional info: Right lower quad. Abd tenderness. RT lower quad. Pain TECHNIQUE: Imaging protocol: Computed tomography of the abdomen and pelvis with contrast. Radiation optimization: All CT scans at this facility use at least one of these dose optimization techniques: automated exposure control; mA and/or kV adjustment per patient size (includes targeted exams where dose is matched to clinical indication); or iterative reconstruction. Contrast material: ISOVUE; Contrast volume: 75 ml; Contrast route: IV; Other contrast: Oral, gastrograffin , 50ml; COMPARISON: NM HEPATOBILIARY W PHARM 01/13/2021 11:55 AM FINDINGS: Lungs: No acute findings in the visualized lower lungs. No consolidation. Heart: The heart is not enlarged. Liver: A small geographic focus of diminished attenuation in the medial segment of left lobe of liver, likely benign periligamentous fatty change series 601, image 19. No suspicious mass. No hepatomegaly. Gallbladder and bile ducts: The gallbladder is unremarkable. No calcified stones or biliary dilatation. Pancreas: The pancreas is normal. Spleen: Borderline splenomegaly 12.6 cm long axis coronal series 601, image 39. Calcified splenic granulomas. Adrenal glands: The adrenal glands are normal. Kidneys and ureters: The kidneys are normal. The ureters are normal. Stomach and bowel: There is no evidence of intestinal perforation or obstruction. The stomach is normal. Appendix: No findings of appendicitis. Intraperitoneal space: There is no free intraperitoneal air. Trace free fluid in the cul-de-sac greater toward the right, low-density fluid. No loculated abscess collection seen. Vasculature: There is no aortic aneurysm. No portal venous gas. Lymph nodes: No significantly enlarged lymph nodes by short axis criteria. Urinary bladder: The bladder is normal. Reproductive: Prominent endometrial stripe within normal limits for age up to 1.3 cm, this would be more accurately evaluated with ultrasound. 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 An irregularly contoured rim enhancing left adnexal cystic lesion of approximately 2.1 cm series 2, image 93, most likely a benign functional ovarian cyst. No enlarged cyst or mass on the right. Right lower quadrant pelvic surgical clips. Bones/joints: Minimal lower thoracic spondylosis. No acute fracture or high-grade listhesis. Soft tissues: Bilateral breast implants, incompletely imaged on this exam. There are no soft tissue masses or fluid collections. IMPRESSION: 1. An irregularly contoured rim enhancing 2.1 cm left adnexal cystic lesion, nonspecific but most likely a functional/involuting ovarian cyst. 2. Small amount of free fluid in the cul-de-sac greater toward the right, nonspecific but likely due to leakage or hemorrhage from the cyst. 3. No findings of appendicitis. 4. Additional nonemergency and chronic findings as above.
== END ==
PROVIDERS: PCP Nurse Practitioner Family; Visit Provider Nurse Practitioner Family
DX: R10.31 Right lower quadrant pain (principal); R10.823 Right lower quadrant rebound abdominal tenderness
CPT/HCPCS: 74177; Q9967

== ENCOUNTER 2022-03-23 13:59 | Emergency (ER) | payer MEDICAID, SELFPAY ==
[2022-03-23 14:05] VITALS: BP 109/66; PULSE 86; RESP 19; TEMP 36.9; O2SAT 99; BMI 19.8
--- NOTE | 2022-03-23 14:40 | EXP.UTC ---
Discharge Plan Disposition Patient Disposition: Home, Self-Care Condition: Good Prescriptions Prescriptions: No Action sertraline [Zoloft] 50 mg tablet 50 mg PO DAILY buspirone 10 mg tablet 10 mg PO BID levonorgestrel-ethinyl estrad [Vienva] 0.1-20 mg-mcg tablet 1 tab PO doxycycline hyclate 100 mg tablet 100 mg PO BID 7 Days Qty: 14 0RF metronidazole 500 mg tablet 500 mg PO BID 5 Days Qty: 10 1RF Referrals Follow up/Referrals: Vaibhav Ash MD [Primary Care Provider] - See instructions Activity Restrictions/Add. Instructions Additional Instructions/Restrictions: *Monitor Temp, Over the counter Motrin or Tylenol as directed/as needed Tylenol every 4 hours and Motrin every 6 hours (as long as your family doctor has told you that you can take it) for fever or pain. and straight to ER if unable to lower temp less than 101.0 after medication given *Warm salt water gargles may help to soothe the throat *Throat Lozenges? *Warm fluids like tea with honey may help to soothe the throat? *Sleep elevated *Humidifier/Vaporizer Follow up IMMEDIATELY for new or worsening symptoms or no Noticeable improvement over the next 48-72 hours. 911 for difficulty breathing or swallowing You were tested for today for COVID19 your test result should be back in the next 24-48 hours, you may check your results on the [facility] my Health Portal Make sure to take your Vitamins Vit. C Vit D and Zinc if you can take them Clinical Impressions Clinical Impression: Viral syndrome, Exposure to COVID-19 virus Stand Alone Forms Stand Alone Forms: Work/School Release Instructions Patient Instructions: Coronavirus Disease 2019, Preventing the Spread of Coronavirus Discharge Instructions Discharge ED Provider: Cheryl Lugo [facility] – [place], [place] HPI General Stated complaint: covid test Mode of Arrival: Ambulatory Source of Information: Patient Limitations: No Limitations Time Seen by Provider: 03/23/22 14:40 Description of Symptoms (Recalled from Triage Doc. by RN): PATIENT C/O HEADCHE, CHILLS, CHEST CONGESTION, AND COUGH X 3 DAYS HEENT Symptoms (Recalled from RN notes): Yes Resp Symptoms (Recalled from RN notes): No Skin Symptoms (Recalled from RN notes): No MS Symptoms (Recalled from RN notes): No Functional Status (Recalled from RN notes): WNL History of Present Illness Provider Complaint: Patient states that 3 people in her home has COVID and she is now having symptoms wanting to get tested States that she is having body aches, chills, headache and cough States that today she had a low grade fever this morning so she came in to get tested before going back to work Related Data Home Medications Medication Instructions Recorded Confirmed buspirone 10 mg tablet 10 mg PO BID 09/15/21 10/20/21 sertraline 50 mg tablet (Zoloft) 50 mg PO DAILY 09/15/21 10/20/21 levonorgestrel-ethinyl estradiol 1 tab PO 10/20/21 10/20/21 0.1 mg-20 mcg tablet (Vienva) Previous Rx's Medication Instructions Recorded metronidazole 500 mg tablet 500 mg PO BID 5 days #10 tabs 10/14/21 doxycycline hyclate 100 mg tablet 100 mg PO BID 7 days #14 tabs 11/02/21 Allergies Allergy/AdvReac Type Severity Reaction Status Date / Time Penicillins Allergy Intermediate I-HIVES Verified 10/20/21 16:12 Worker's Comp Is this a Worker's Comp case?: No PFSH PFSH Medical History (Updated 03/23/22 @ 14:50 by Cheryl Lugo APRN) Anxiety Depression Migraine Urinary tract infection Surgical History (Updated 03/23/22 @ 14:35 by Jaimee Gerard RN) History of tonsillectomy History of tubal ligation Social History (Updated 03/23/22 @ 14:36 by Jaimee Gerard RN) Smoking Status: Current every day smoker tobacco type: e-cigarettes second hand exposure: Yes alcohol intake: never substance use type: denies use, former substance user, marijuana and crack/cocaine current occupational status: employed Travel in
[2022-03-23 14:56] VITALS: BP 109/66; PULSE 86; RESP 19; TEMP 36.9; O2SAT 99
== END 2022-03-23 15:01 | disposition home or self-care (01) ==
PROVIDERS: Emergency Provider Nurse Practitioner; PCP Internal Medicine Adolescent Medicine
DX: Z20.822 Contact with and (suspected) exposure to COVID-19 (principal); B34.9 Viral infection, unspecified; R51.9 Headache, unspecified; R50.9 Fever, unspecified; R09.89 Other specified symptoms and signs involving the circulatory and respiratory systems; R05.9 Cough, unspecified
CPT/HCPCS: 99212; C9803; G0463; U0003; U0005

== ENCOUNTER 2023-06-18 08:36 | Emergency (ER) | payer MEDICAID, SELFPAY ==
[2023-06-18 09:14] VITALS: BP 109/76; PULSE 72; RESP 18; TEMP 36.8; O2SAT 99; BMI 21.8
--- NOTE | 2023-06-18 09:30 | EXP.UTC ---
Discharge Plan Disposition Patient Disposition: Home, Self-Care Condition: Good Prescriptions Prescriptions: New methylprednisolone [Medrol (Rudolph)] 4 mg tablets,dose pack See Rx Instructions .Route .COMPLEX 6 Days Qty: 21 0RF Rx Instructions: taper pack; guaifenesin [Mucinex] 600 mg tablet extended release 12hr 1,200 mg PO BID PRN (Reason: cough) Qty: 20 0RF azithromycin [Zithromax Z-Rudolph] 250 mg tablet See Rx Instructions .ROUTE .COMPLEX 5 Days Qty: 6 0RF Rx Instructions: For 250 mg dose pack: take 500 mg today (day 1), then 250 mg for 4 days (days 2-5) Referrals Follow up/Referrals: Vaibhav Ash MD [Primary Care Provider] - See instructions Activity Restrictions/Add. Instructions Additional Instructions/Restrictions: *Monitor Temp, Over the counter Motrin or Tylenol as directed/as needed Tylenol every 4 hours and Motrin every 6 hours (as long as your family doctor has told you that you can take it) for fever or pain. and straight to ER if unable to lower temp less than 101.0 after medication given *Warm salt water gargles may help to soothe the throat *Throat Lozenges? *Warm fluids like tea with honey may help to soothe the throat? *Sleep elevated *Humidifier/Vaporizer *Flonase 2 sprays in each nostril daily but be aware that it may take 2-3 days before you notice improvement *Bromfed may cause drowsiness. Know how it effects you (your child) before driving, caring for small child, or sending your child to school. Not other antihistamines/allergy medications while taking bromfed Your throat swab was sent for culture. Those results are typically sent to your primary care. Be sure to follow up in 2-3 days with your family doctor/primary care physician if no improvement so they can review those result and treat if necessary. If you don?t have a primary care doctor, I recommend you get one but in the mean time, you will have to return to a walk in clinic Follow up IMMEDIATELY for new or worsening symptoms or no Noticeable improvement over the next 48-72 hours. 911 for difficulty breathing or swallowing You were tested for today for COVID19 your test result should be back in the next 24 hours You may check for your results on the [facility] My Health Portal if your COVID test is positive you must Quarantine for 5 days Clinical Impressions Clinical Impression: Sinusitis Qualifiers: Sinusitis location: unspecified location Chronicity: unspecified Qualified Code(s): J32.9 - Chronic sinusitis, unspecified Instructions Patient Instructions: Sinusitis, DI for Sinusitis Discharge ED Provider: Cheryl Lugo [facility] [place] HPI General Stated complaint: cough, congestion, fever Mode of Arrival: Ambulatory Source of Information: Patient Limitations: No Limitations Time Seen by Provider: 06/18/23 09:30 Description of Symptoms (Recalled from Triage Doc. by RN): PATIENT C/O COUGH, CONGESTION, FEVER, AND SOA. RECENTLY EXPOSED TO COVID HEENT Symptoms (Recalled from RN notes): Yes Resp Symptoms (Recalled from RN notes): Yes Skin Symptoms (Recalled from RN notes): No MS Symptoms (Recalled from RN notes): No Functional Status (Recalled from RN notes): WNL History of Present Illness Provider Complaint: Patient states that she was recently around several people at a alliance party that has since tested positive for COVID States that she has been having sinus congestion and pressure, cough, sore throat and at times feels like it is hard to breath States that her cough is dry but the pressure in her sinuses makes her head hurt so today when she wasnt feeling any better she came in Related Data Previous Rx's Medication Instructions Recorded azithromycin 250 mg tablet See Rx Instructions PO .COMPLEX 5 06/18/23 (Zithromax Z-Rudolph) days #6 tabs guaifenesin 600 mg tablet, 1,200 mg PO BID PRN cough #20 tabs 06/18/23 extended release 12 hr (Mucinex) methylprednisolone 4 mg tablets in See Rx Ins
[2023-06-18 09:33] VITALS: BP 109/76; PULSE 72; RESP 18; TEMP 36.8; O2SAT 99
[2023-06-18 09:35] LABS: UTC Strep Screen (Rapid) Negative (Negative)
== END 2023-06-18 09:59 | disposition home or self-care (01) ==
PROVIDERS: Emergency Provider Nurse Practitioner; PCP Internal Medicine Adolescent Medicine
DX: U07.1 COVID-19 (principal); R06.02 Shortness of breath; R50.9 Fever, unspecified; J01.90 Acute sinusitis, unspecified; R05.9 Cough, unspecified; R09.81 Nasal congestion; F17.290 Nicotine dependence, other tobacco product, uncomplicated
CPT/HCPCS: 87635; 87880; 99212; 99214; G0463

== ENCOUNTER 2024-01-25 10:38 | Emergency (ER) | payer MEDICAID, SELFPAY ==
[2024-01-25] VITALS (11 sets, daily range): BP systolic 99–135; BP diastolic 51–73; PULSE 61–84; RESP 18–20; TEMP 37.1; O2SAT 97–100; BMI 23.3
--- NOTE | 2024-01-25 10:39 | ECG_ITS ---
APPROVED REPORT Exam: Resting ECG HR:70 bpm ECG Measurements Heart Rate 70 AXES IN 115 P 10 QRSd 82 QRS 79 QT 348 T 68 QTc 369 Conclusion SINUS RHYTHM WITH SINUS ARRHYTHMIA WITH SHORT IN INTERVAL POSSIBLE RIGHT VENTRICULAR CONDUCTION DELAY [RSR (QR) IN V1/V2] BORDERLINE ECG UNCONFIRMED REPORT Electronically signed by : PAM BOATENG, 01/25/2024 16:27:37
--- NOTE | 2024-01-25 10:45 | ED_ITS ---
Discharge Plan Disposition Patient Disposition: Home, Self-Care Condition: Good Prescriptions Prescriptions: New famotidine [Pepcid] 20 mg tablet 20 mg PO DAILY 14 Days Qty: 14 0RF Referrals Follow up/Referrals: Janay Peña APRN [Primary Care Provider] - See instructions Activity Restrictions/Add. Instructions Additional Instructions/Restrictions: You have been evaluated in the ED for your complaints. You may follow-up with your PCP in the next 3 to 5 days. Please return to ED for any new or worsening symptoms. I have written for Pepcid to assist with your symptoms. Please take this as prescribed. Clinical Impressions Clinical Impression: Chest pain, Acid reflux Discharge ED Provider: Kevin Bass Adult HPI General Chief complaint: Chest Pain Stated complaint: chest pain Time Seen by Provider: 01/25/24 10:39 Mode of Arrival: Ambulatory Source of Information: Patient Limitations: No Limitations Description of Symptoms (Recalled from ER Triage Doc. by RN): chest pain, GERD symptoms. History of Present Illness HPI narrative: 33-year-old female with past medical history significant for depression, anxiety, migraine headaches, presents today for evaluation concerning central chest pain characterized as a burning sensation onset around 8 PM last night after eating fries. She also reports that she had an episode of N/V. Also reports that she has been short of breath. Recently traveled [place] to the [place] from [place]. To add to history she also notes pain when swallowing. She is able to tolerate her secretions appropriately. Denies any fevers, chills, abdominal pain, dysuria, hematuria or any other associated symptoms at this time. Related Data Previous Rx's Medication Instructions Recorded famotidine 20 mg tablet (Pepcid) 20 mg PO DAILY 14 days #14 tabs 01/25/24 Allergies Allergy/AdvReac Type Severity Reaction Status Date / Time Penicillins Allergy Intermediate I-HIVES Verified 06/22/22 16:06 [facility] Disclaimer: The information contained in this section may have been updated after the patient was seen, as this information can be updated by other users. 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 current occupational exposures/hazards: No caffeine: Yes ROS Obtained: Yes All systems reviewed & no additional complaints except as documented Physical Exam General General appearance: alert and in no apparent distress Head Head exam: atraumatic and normocephalic Eye Eye exam: Present normal appearance, PERRL and EOMI ENT ENT exam: Present normal oropharynx and mucous membranes moist Neck Neck exam: Present full ROM; Absent meningismus Respiratory Respiratory exam: Absent respiratory distress, wheezes, stridor or accessory muscle use Cardiovascular Cardiovascular exam: Present normal rhythm Abdominal Exam Abdominal exam: Present soft; Absent distention, tenderness, guarding, rebound or rigidity Neurological Exam Neurological exam: Present alert, oriented X3 and CN II-XII intact; Absent motor sensory deficit Psychiatric Psychiatric exam: Present normal affect and normal mood Skin Skin exam: Present warm and dry Medical Decision Making Medical Records Medical records reviewed: Yes I reviewed the patient's medical records. Joel Inquiry Pt receiving controlled substance: No Joel was queried for this patient: No Vital Signs: 01/25/24 10:38 01/25/24 10:45 01/25/24 11:00 Temperature 98.7 F Temperature Source Oral Pulse Rate 74 84 Pulse Rate [Right] 79 Respiratory Rate 20 Blood Pressure 123/73 Blood Pressure [Right Arm] 135/51 L Blood Pressure Mean 89 Blood Pressure Mean [Right Arm] 79 02 Sat by Pulse Oximetry 99 100 100 Oxygen Delivery Method Room Air 01/25/24 11:31 01/25/24 12:00 01/25/24 12:30 Temperature Temperature Source Pulse Rate 62 71 76 Pulse Rate [Right] Respiratory Rate Blood Pressure 101/60 L 110/68 100/71 L Blood Pressure [Right Arm] Blood Pressure Mean 77 Blood Pressure Mean [Right Arm] 02 Sat by Pulse Oximetry 97 99 100 Oxygen Delivery Method 01/25/24 13:00 Temperature Temperature Source Pulse Rate 76 Pulse Rate [Right] Respiratory Rate Blood Pressure 107/71 L Blood Pressure [Right Arm] Blood Pressure Mean Blood Pressure Mean [Right Arm] 02 Sat by Pulse Oximetry 100 Oxygen Delivery Method Lab Data Lab Results 01/25/24 10:40: WBC 8.1, RBC 4.00 L, Hgb 12.4, Hct 37.5, MCV 93.8, MCH 30.9, MCHC 32.9, RDW 13.8, Plt Count 201, MPV 10.1, Neut % (Auto) 70.9, Lymph % (Auto) 19.1, Stark % (Auto) 4.9, Eos % (Auto) 4.6, Baso % (Auto) 0.5, Neut # (Auto) 5.7, Lymph # (Auto) 1.6, Stark # (Auto) 0.4, Eos # (Auto) 0.4, Baso # (Auto) 0.0, D- Dimer 0.31, Sodium 139, Potassium 3.6, Chloride 104, Carbon Dioxide 30, Anion Gap 8.6, BUN 8, Creatinine 0.70, Estimated Creat Clear 112, Estimated GFR 95, Est GFR ( Amer) 115, Glucose 80, Calcium 9.8, Total Bilirubin 0.4, AST 26, ALT 19, Alkaline Phosphatase 53, Troponin I < 0.01, Total Protein 6.9, Albumin 4.1, Globulin 2.8, Albumin/Globulin Ratio 1.5, Serum HCG, Qual Negative 01/25/24 13:30: Troponin I < 0.01 01/25/24 10:40 01/25/24 10:40 Orders (Tests/Meds): ED MEDICATIONS Discontinued Medications Generic Name Dose Route Start Last Admin Trade Name Freq PRN Reason Stop Dose Admin Belladonna Alkaloids 60 ml 01/25/24 10:47 01/25/24 10:57 Belladonna Alkaloids 60 Ml Ml PO 01/25/24 10:48 60 ml ONCE ONE Administration Famotidine 20 mg 01/25/24 13:52 01/25/24 14:01 Famotidine 20mg Tablet PO 01/25/24 13:53 20 mg ONCE ONE Administration Ketorolac Tromethamine 15 mg 01/25/24 13:09 01/25/24 13:26 Ketorolac 30mg/Ml Vial IV 01/25/24 13:10 15 mg ONCE ONE Administration Ondansetron HCl 4 mg 01/25/24 10:47 01/25/24 10:57 Ondansetron 4mg/2ml Vial IV 01/25/24 10:48 4 mg ONCE ONE Administration ORDERS Category Date Time Status CXR 2 view (NOT portable) [XR chest 2V] Stat Exams 01/25/24 10:47 Completed CBC w/Auto Diff [Complete Blood Count Auto Diff] Stat Lab 01/25/24 10:40 Completed CMP [Comprehensive Metabolic Panel] Stat Lab 01/25/24 10:40 Completed D-Dimer Stat Lab 01/25/24 10:40 Completed HCG Qualitative, Serum Stat Lab 01/25/24 10:40 Completed Trop I [Troponin I] Stat Lab 01/25/24 10:40 Completed Troponin I Q3H Lab 01/25/24 13:30 Completed Troponin I Q3H Lab 01/25/24 17:00 Ordered HEART Score History (anamnesis): Slightly suspicious ECG: Normal Age: <45 years Risk factors: No known risk factors Troponin: </= normal limit HEART Score: 0 Medical Decision Narrative: 33-year-old female with past medical history significant for depression, anxiety, migraine headaches, presents today for evaluation concerning central chest pain characterized as a burning sensation onset around 8 PM last night after eating fries. She also reports that she had an episode of N/V. Also reports that she has been short of breath. [place] from [place]. To add to history she also notes pain when swallowing. She is able to tolerate her secretions appropriately. On assessment, she was hemodynamically stable and in no acute distress. Afebrile. Her chest was clear to auscultation bilaterally. Oropharynx was clear without erythema or exudate. No cervical lymphadenopathy palpated. Abdomen soft nondistended and nontender palpation. Other physical exam vitals unremarkable. Differential diagnoses include not limited to acid reflux, PE, ACS, , viral syndrome, strep, among others EKG was personally interpreted by me and was with sinus rhythm with sinus arrhythmia with a rate of 70 bpm. No ischemic changes. Chest x-ray was personally interpretted by me and did not show any acute cardiopulmonary disease processes. Radiology report confirmed. WBC was noted to be 8.1. D-dimer normal at 0.31. Initial troponin less than 0.01. Second troponin less than 0.01. Negative screen. On reassessment the patient remains medically stable in no acute distress. She had been given a GI cocktail initially which improved her symptoms. I also gave her Pepcid as well as Zofran. She stated that her symptoms were significantly improved and that she was ready to go home. I discussed ED workup and results as well as current plan to discharge with prescriptions for Pepcid to assist with her symptoms at home as it may be due to reflux. She will follow-up with her primary care provider for further evaluation. Provided her with return ED precautions. She verbalized understanding and agreed with plan. Subsequently discharged. Critical Care Critical Care Time Critical Care Time: No
--- NOTE | 2024-01-25 10:47 | XR_ITS ---
FINAL REPORT CLINICAL HISTORY: CP, SOB COMPARISON: None FINDINGS: Two views of the chest were obtained. The heart size and pulmonary vascularity are within normal limits. The mediastinum is normal. No acute pulmonary abnormality is identified. There is no pneumothorax. The bony thorax is intact. IMPRESSION: No active cardiopulmonary disease. Reviewed, Interpreted and Dictated by Cristiano Chaudhary III, MD Transcribed by Liv Canas Authenticated and [facility]
[2024-01-25 10:57] LABS: Basophils % 0.5 % (0.1-2.0); Eosinophils # 0.4 K/mm3 (0.0-0.4); Eosinophils % 4.6 % (0.1-12.0); Hematocrit 37.5 % (37.0-47.0); Hemoglobin 12.4 g/dL (12.2-16.2); Lymphocytes # 1.6 K/mm3 (0.7-4.5); Lymphocytes % 19.1 % (10-50); Mean Corpuscular HGB Conc 32.9 g/dL (31.8-35.4); Mean Corpuscular Hemoglobin 30.9 pg (27.0-31.2); Mean Corpuscular Volume 93.8 fl (81-99); Mean Platelet Volume 10.1 fl (7.4-10.4); Monocytes # 0.4 K/mm3 (0.1-1.0); Monocytes % 4.9 % (1.7-9.3); Neutrophils # 5.7 K/mm3 (1.8-7.8); Neutrophils % 70.9 % (37.0-80.0); Platelet Count 201 K/mm3 (142-424); Red Cell Distribution Width 13.8 % (11.5-17.5); White Blood Count 8.1 K/mm3 (4.8-10.8)
[2024-01-25] MEDS: ONDANSETRON 4MG/2ML VIAL 4 MG IV (10:57)
[2024-01-25] MEDS: BELLADONNA ALKALOIDS 60 ML ML PO (10:57)
[2024-01-25 11:04] LABS: Alanine Aminotransferase 19 U/L (12-78); Albumin Level 4.1 g/dl (3.5-5.0); Albumin/Globulin Ratio 1.5 (1.1-1.8); Alkaline Phosphatase 53 U/L (38-126); Anion Gap 8.6 mEq/L (5-15); Aspartate Amino Transferase 26 U/L (14-36); Bilirubin,Total 0.4 mg/dl (0.2-1.3); Blood Urea Nitrogen 8 mg/dl (7-17); Calcium 9.8 mg/dl (8.4-10.2); Carbon Dioxide 30 mmol/L (22.0-30.0); Chloride 104 mmol/L (98-107); Creatinine Clearance Estimated 112 mL/min (50-200); Estimated Glomerular Filt Rate 95 ml/min (>60); GFR (African American) 115 ML/MIN (>60); Globulin 2.8 g/dL (1.3-3.2); Glucose 80 mg/dl (74-100); Potassium 3.6 mmoL/L (3.5-5.1); Sodium 139 mmol/L (136-145); Total Protein,Serum 6.9 g/dl (6.3-8.2)
[2024-01-25 11:09] LABS: D-Dimer 0.31 ug/mL (0.0-0.5)
[2024-01-25 11:11] LABS: HCG Qualitative, Serum Negative (Negative)
[2024-01-25 11:32] LABS: Troponin I < 0.01 ng/ml (0.00-0.034)
[2024-01-25] MEDS: KETOROLAC 30MG/ML VIAL 15 MG IV (13:26)
[2024-01-25] MEDS: FAMOTIDINE 20MG TABLET 20 MG PO (14:01)
--- NOTE | 2024-01-25 14:45 | PC.NURSE ---
Spoke with lab regarding second troponin. States they will call me back and let me know when it is ready.
[2024-01-25 15:15] LABS: Troponin I < 0.01 ng/ml (0.00-0.034)
== END 2024-01-25 15:31 | disposition home or self-care (01) ==
PROVIDERS: Emergency Provider Emergency Medicine; PCP Nurse Practitioner Family
DX: R07.89 Other chest pain (principal); K21.9 Gastro-esophageal reflux disease without esophagitis; R11.2 Nausea with vomiting, unspecified; F17.290 Nicotine dependence, other tobacco product, uncomplicated
CPT/HCPCS: 71046; 80053; 84484; 84703; 85025; 85378; 93005; 96374; 96375; 99284; J1885; J2405

== ENCOUNTER 2024-04-23 07:34 | Emergency (ER) | payer MEDICAID, SELFPAY ==
[2024-04-23 07:36] VITALS: BP 114/59; PULSE 91; RESP 18; TEMP 36.7; O2SAT 100; BMI 22.4
--- NOTE | 2024-04-23 07:45 | ED_ITS ---
Discharge Plan Disposition Patient Disposition: Home, Self-Care Prescriptions Prescriptions: New cefdinir 300 mg capsule 300 mg PO BID 5 Days Qty: 10 0RF ondansetron 4 mg tablet,disintegrating 4 mg PO Q8H PRN (Reason: nausea and vomiting) 4 Days Qty: 12 0RF No Action famotidine [Pepcid] 20 mg tablet 20 mg PO DAILY 14 Days Qty: 14 0RF Referrals Follow up/Referrals: Janay Peña APRN [Primary Care Provider] - See instructions Activity Restrictions/Add. Instructions Additional Instructions/Restrictions: Follow-up with your primary care physician as needed. Take the cefdinir and Zofran as prescribed. You can take Tylenol and ibuprofen every 6 hours as needed to help with pain. If you develop any new or worsening symptoms, such as uncontrolled pain, fevers, worsening back pain, or if you become concerned for your health for any reason, return to the emergency department for evaluation Clinical Impressions Clinical Impression: UTI (urinary tract infection) Qualifiers: Urinary tract infection type: site unspecified Hematuria presence: without hematuria Qualified Code(s): N39.0 - Urinary tract infection, site not specified Print Language Print Language: Niuean Discharge ED Provider: Raimundo Schroeder General Adult HPI General Chief complaint: PAIN Stated complaint: blood in urine, extreme pain in all lower abd/back Time Seen by Provider: 04/23/24 07:45 Mode of Arrival: Ambulatory Source of Information: Patient History of Present Illness HPI narrative: David Pruitt is a 34F with no reported past medical history Who presents to the emergency department for complaints of sudden onset lower abdominal pain and lower back pain with associated hematuria. Patient states that she was woken from sleep at approximately 0300 this morning with severe lower abdominal pain and bilateral lower back pain that is dull in nature but severe. She states that she has had decreased urination since then but has noticed blood in her urine. She does report a history of recurrent urinary tract infections, however she states that they have never presented like this. She denies any fevers, diarrhea, constipation. She denies any concern for sexually transmitted infections. She denies any chest pain or shortness of breath. She states that she has never had a kidney stone before. She states that the pain has not moved since its onset and does not seem to worsen with any position changes. She reports some nausea but denies any vomiting. She denies any vaginal bleeding or discharge but states that she has regular periods and is not on her period currently. Related Data Previous Rx's ?Medication ?Instructions ?Recorded famotidine 20 mg tablet (Pepcid) 20 mg PO DAILY 14 days #14 tabs 01/25/24 cefdinir 300 mg capsule 300 mg PO BID 5 days #10 caps 04/23/24 ondansetron 4 mg disintegrating 4 mg PO Q8H PRN nausea and 04/23/24 tablet vomiting 4 days #12 tabs Allergies Allergy/AdvReac Type Severity Reaction Status Date / Time Penicillins Allergy Intermediate I-HIVES Verified 06/22/22 16:06 [facility] Disclaimer: The information contained in this section may have been updated after the patient was seen, as this information can be updated by other users. 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 current occupational exposures/hazards: No caffeine: Yes Other Medical History Have you received the Flu Vaccine for this season: No Have you received the Pneumonia Vaccine: No ROS Obtained: Yes Systems reviewed as appropriate & no additional complaints except as documented Physical Exam General General appearance: alert Comment: Appears uncomfortable Head Head exam: atraumatic Eye Eye exam: Present normal appearance ENT ENT exam: Present normal external ear exam Neck Neck exam: Present full ROM Chest Chest inspection: Present symmetric chest wall rise Respiratory Respiratory exam: Present normal lung sounds bilaterally; Absent respiratory distress, wheezes or stridor Cardiovascular Cardiovascular exam: Present regular rate and normal rhythm Abdominal Exam Abdominal exam: Present soft and tenderness (Tenderness to palpation in the right lower and left lower quadrants. Abdomen is soft and nondistended. Nonperitonitic. Negative Scruggs sign. Negative Rovsing sign. Negative obturator sign); Absent guarding Extremities Exam Extremities exam: Present normal inspection Back Exam Back exam: Present normal inspection and tenderness (Mild tenderness to the bilateral lumbar paraspinal areas without midline tenderness); Absent CVA tenderness (R) or CVA tenderness (L) Neurological Exam Neurological exam: Present alert and oriented X3 Psychiatric Psychiatric exam: Present normal affect Skin Skin exam: Present warm and dry Medical Decision Making Medical Records Medical records reviewed: Yes I reviewed the patient's medical records. Screening: Per USPSTF and CDC recommendations, given the prevalence of disease in our region, it is our hospital?s policy to screen for HIV and viral Hepatitis for all patients aged 18 and over and those with ongoing risk factors. Joel Inquiry Pt receiving controlled substance: No Vital Signs: 04/23/24 07:36 04/23/24 07:48 04/23/24 10:03 Temperature 98.1 F 98.1 F Temperature Source Oral Oral Pulse Rate 82 61 Pulse Rate [Radial] 91 H Respiratory Rate 18 18 Blood Pressure 101/70 L Blood Pressure [Right Arm] 114/59 L Blood Pressure Mean [Right Arm] 77 Blood Pressure Source [Right Arm] Automatic Cuff Blood Pressure Position [Right Arm] Sitting 02 Sat by Pulse Oximetry 100 99 Oxygen Delivery Method Room Air Room Air Lab Data Lab Results 04/23/24 07:42: Urine Color Yellow, Urine Appearance Cloudy, Urine pH 6.0, Ur Specific [place] >= 1.030, Urine Protein 2+ A, Urine Glucose (UA) Negative, Urine Ketones Negative, Urine Blood 3+ A, Urine Nitrate Negative, Urine Bilirubin 1+ A, Urine Urobilinogen 1.0, Ur Leukocyte Esterase 2+ A, Urine RBC 20-50, Urine WBC 20-50, Ur Squamous Epith Cells None, Urine Bacteria Trace 04/23/24 07:43: WBC 11.3 H, RBC 4.50, Hgb 13.5, Hct 41.5, MCV 92.2, MCH 30.0, MCHC 32.6, RDW 13.1, Plt Count 219, MPV 9.6, Neut % (Auto) 76.9, Lymph % (Auto) 15.1, [place] % (Auto) 4.5, Eos % (Auto) 2.9, Baso % (Auto) 0.6, Neut # (Auto) 8.7 H, Lymph # (Auto) 1.7, [place] # (Auto) 0.5, Eos # (Auto) 0.3, Baso # (Auto) 0.1, Sodium 138, Potassium 3.7, Chloride 102, Carbon Dioxide 29, Anion Gap 10.7, BUN 12, Creatinine 0.70, Estimated Creat Clear 107, Estimated GFR 95, Est GFR ( Amer) 115, Glucose 100, Calcium 9.2, Total Bilirubin 0.5, AST 22, ALT 17, Alkaline Phosphatase 51, Total Protein 7.2, Albumin 4.4, Globulin 2.8, Albumin/Globulin Ratio 1.6, Lipase 89, Serum HCG, Qual Negative 04/23/24 07:43 04/23/24 07:43 Orders (Tests/Meds): ED MEDICATIONS Discontinued Medications Generic Name Dose Route Start Last Admin Trade Name Freq PRN Reason Stop Dose Admin Acetaminophen 1,000 mg 04/23/24 09:38 04/23/24 09:40 Acetaminophen 500mg Tab PO 04/23/24 09:39 1,000 mg ONCE ONE Administration Ketorolac Tromethamine 15 mg 04/23/24 07:51 04/23/24 07:58 Ketorolac 30mg/Ml Vial IV 04/23/24 07:52 15 mg ONCE ONE Administration Ondansetron HCl 4 mg 04/23/24 07:51 04/23/24 07:58 Ondansetron 4mg/2ml Vial IV 04/23/24 07:52 4 mg ONCE ONE Administration ORDERS Category Date Time Status CT abdomen pelvis wo con Stat Cat Scan 04/23/24 07:51 Completed CBC w/Auto Diff [Complete Blood Count Auto Diff] Stat Lab 04/23/24 07:43 Completed CMP [Comprehensive Metabolic Panel] Stat Lab 04/23/24 07:43 Completed HIV (1&2) Antibody Rapid Stat Lab 04/23/24 07:43 Received Hep C Ab with Reflex to RNA Stat Lab 04/23/24 07:43 Received Lipase Stat Lab 04/23/24 07:43 Completed Serum [HCG Qualitative, Serum] Stat Lab 04/23/24 07:43 Completed UA [Urinalysis and Microscopic] Stat Lab 04/23/24 07:42 Completed Urine Culture Stat Micro 04/23/24 07:42 Received Medical Decision Narrative: This is a 34-year-old female who is otherwise healthy who presents to the emergency department for complaints of 5 hours of lower abdominal pain, back pain as well as hematuria. She has a history of recurrent UTIs but states that this feels different and more severe. She does have some nausea without any vomiting. She has not take any medications prior to arrival. Vital signs on arrival reveal that she is normotensive, heart rate within normal limits, afebrile, O2 sats 100% on room air. Differential diagnosis includes: Urinary tract infection, pyelonephritis, ureterolithiasis, appendicitis, ectopic , pancreatitis, ruptured ovarian cyst, among others. Patient's workup in the emergency department included: CT abdomen pelvis without contrast to evaluate for renal stone, urinalysis, lipase, HIV, hep C, serum test, CMP, CBC with differential. Patient symptoms are treated with 15 mg of IV Toradol and 4 mg of IV Zofran, Tylenol 100mg PO. Workup was significant for: White blood cell count elevated 11.3 with 8.7 neutrophils, CMP unremarkable and nonactionable, lipase normal at 89, negative test, urine with 2+ protein, 3+ blood, nitrite negative, leukocyte Estrace 2+, 20-50 RBCs, 20-50 white blood cells and trace bacteria. CT abdomen pelvis without contrast was interpreted by me personally. No hydronephrosis or obstructing ureterolithiasis is noted. See radiology report for final details. Patient's workup is consistent with urinary tract infection and would benefit from a course of antibiotics. She has been prescribed 5-day course of cefdinir. She is instructed to take this as prescribed as well as Tylenol and ibuprofen to help with pain. She is also being prescribed Zofran for nausea. She was instructed to follow-up with her primary care physician and return to the emergency department if symptoms do not improve or worsen. All questions were answered. She demonstrated understanding and was in agreement with this plan. She was then discharged from the emergency department in stable condition. Critical Care Critical Care Time Critical Care Time: No
[2024-04-23 07:48] VITALS: PULSE 82; O2SAT 99
--- NOTE | 2024-04-23 07:51 | CT_ITS ---
FINAL REPORT CLINICAL HISTORY: Hematuria, lower back pain. Concern for kidney sto COMPARISON: 02/13/2022 FINDINGS: Axial CT images of the abdomen and pelvis were obtained without intravenous contrast. Coronal reformatted images were also obtained.This study was performed with techniques to keep radiation doses as low as reasonably achievable (ALARA). Individualized dose reduction techniques using automated exposure control or adjustment of mA and/or kV according to the patient's size were employed. Abdomen:The lung bases are clear. There is no evidence of renal stone or hydronephrosis. Surgical clips are seen in the hepatorenal space. Otherwise, the liver, spleen and pancreas have an unremarkable, unenhanced appearance. No mass or adenopathy is seen. No inflammatory process is identified. Pelvis: Images of the pelvis reveal no evidence of ureteral dilation or ureteral stone. There are several surgical clips in the left lateral pelvis. A moderate amount of retained stool is present. The appendix is normal. There is a small amount of pelvic free fluid which may be physiologic or reactive. Several phleboliths are seen in the pelvis. IMPRESSION: No renal or ureteral stone, or hydronephrosis. No mass or inflammatory process. Reviewed, Interpreted and Dictated by Cristiano Chaudhary III, MD Transcribed by Carolyn Lane Authenticated and . [facility]
[2024-04-23 07:52] LABS: Microscopic, Urine URINE MICROSCOPIC (MICROSCOPIC)
[2024-04-23] MEDS: KETOROLAC 30MG/ML VIAL 15 MG IV (07:58)
[2024-04-23] MEDS: ONDANSETRON 4MG/2ML VIAL 4 MG IV (07:58)
[2024-04-23 08:00] LABS: Appearance,Urine CLOUDY (Clear); Blood, Urine 3+ (Negative); Color,Urine YELLOW (Yellow); Glucose,Urine (UA) Negative (Negative); Ketones,Urine Negative (Negative); Leukocyte Esterase,Urine 2+ (Negative); Nitrate,Urine Negative (Negative); Protein,Urine 2+ (Negative); Specific Gravity, Urine >= 1.030 (1.005-1.030)
[2024-04-23 08:00] LABS: Basophils # 0.1 K/mm3 (0-0.2); Basophils % 0.6 % (0.1-2.0); Eosinophils # 0.3 K/mm3 (0.0-0.4); Eosinophils % 2.9 % (0.1-12.0); Hematocrit 41.5 % (37.0-47.0); Hemoglobin 13.5 g/dL (12.2-16.2); Lymphocytes # 1.7 K/mm3 (0.7-4.5); Lymphocytes % 15.1 % (10-50); Mean Corpuscular HGB Conc 32.6 g/dL (31.8-35.4); Mean Corpuscular Volume 92.2 fl (81-99); Mean Platelet Volume 9.6 fl (7.4-10.4); Monocytes # 0.5 K/mm3 (0.1-1.0); Monocytes % 4.5 % (1.7-9.3); Neutrophils # 8.7 K/mm3 (1.8-7.8); Neutrophils % 76.9 % (37.0-80.0); Platelet Count 219 K/mm3 (142-424); Red Cell Distribution Width 13.1 % (11.5-17.5); White Blood Count 11.3 K/mm3 (4.8-10.8)
[2024-04-23 08:05] LABS: Albumin Level 4.4 g/dl (3.5-5.0); Chloride 102 mmol/L (98-107); Sodium 138 mmol/L (136-145)
[2024-04-23 08:06] LABS: Potassium 3.7 mmoL/L (3.5-5.1)
[2024-04-23 08:08] LABS: Alanine Aminotransferase 17 U/L (12-78); Alkaline Phosphatase 51 U/L (38-126); Anion Gap 10.7 mEq/L (5-15); Aspartate Amino Transferase 22 U/L (14-36); Bilirubin,Total 0.5 mg/dl (0.2-1.3); Blood Urea Nitrogen 12 mg/dl (7-17); Carbon Dioxide 29 mmol/L (22.0-30.0); Creatinine Clearance Estimated 107 mL/min (50-200); Estimated Glomerular Filt Rate 95 ml/min (>60); GFR (African American) 115 ML/MIN (>60)
[2024-04-23 08:09] LABS: Albumin/Globulin Ratio 1.6 (1.1-1.8); Calcium 9.2 mg/dl (8.4-10.2); Globulin 2.8 g/dL (1.3-3.2); Glucose 100 mg/dl (74-100); Lipase 89 U/L (23-300); Total Protein,Serum 7.2 g/dl (6.3-8.2)
--- NOTE | 2024-04-23 08:12 | PC.NURSE ---
patient gone to CT at this time.
[2024-04-23 08:17] LABS: HCG Qualitative, Serum Negative (Negative)
[2024-04-23 08:18] LABS: Bilirubin,Urine 1+ (Negative)
--- NOTE | 2024-04-23 08:18 | PC.NURSE ---
patient back in room at this time.
[2024-04-23 08:24] LABS: Bacteria,Urine Trace /lpf; RBC,Urine 20-50 #/hpf (0-3); WBC,Urine 20-50 #/hpf (0-3)
--- NOTE | 2024-04-23 08:24 | PC.NURSE ---
Rounded on patient, no needs voiced at this time.
[2024-04-23] MEDS: ACETAMINOPHEN 500MG TAB 1000 MG PO (09:40)
[2024-04-23 10:03] VITALS: BP 101/70; PULSE 61; RESP 18; TEMP 36.7; O2SAT 100
[2024-04-23 14:41] LABS: HIV (1&2) Antibody Rapid NONREACTIVE (NONREACTIVE)
[2024-04-24 05:14] LABS: HCV Ab Non Reactive (Non Reactive)
--- NOTE | 2024-04-25 16:33 | PC.NURSE ---
urine culture discussed with , pt dc with cefdinir, ntd
== END 2024-04-23 10:04 | disposition home or self-care (01) ==
PROVIDERS: Emergency Provider Student in an Organized Health Care Education/Training Program; PCP Nurse Practitioner Family
DX: N39.0 Urinary tract infection, site not specified (principal); R10.9 Unspecified abdominal pain; M54.50 Low back pain, unspecified; R31.9 Hematuria, unspecified; R39.12 Poor urinary stream
CPT/HCPCS: 74176; 80053; 81001; 83690; 84703; 85025; 86803; 87086; 87088; 87186; 87389; 96374; 96375; 99284; J1885; J2405

== ENCOUNTER 2024-04-30 18:17 | Emergency (ER) | payer MEDICAID, SELFPAY ==
[2024-04-30 18:28] VITALS: BP 131/82; PULSE 76; RESP 20; TEMP 37.1; O2SAT 99; BMI 24.1
--- NOTE | 2024-04-30 18:32 | EXP.UTC ---
Discharge Plan Disposition Patient Disposition: Home, Self-Care Condition: Good Prescriptions Prescriptions: New nitrofurantoin monohyd/m-cryst [Macrobid] 100 mg capsule 100 mg PO Q12H 7 Days Qty: 14 0RF Rx Instructions: must administer with a meal/food phenazopyridine [Pyridium] 200 mg tablet 200 mg PO Q8H 2 Days Qty: 6 0RF Referrals Follow up/Referrals: Janay Peña APRN [Primary Care Provider] - See instructions Activity Restrictions/Add. Instructions Additional Instructions/Restrictions: *Increase fluids. Water not Soda or Tea *Start antibiotic immediately and be sure to take as ordered for the FULL length of time although you should start to see improvement over the next 48 hours *Pyridium as needed Remember this medication will turn your urine . This is normal but it will stain what ever it gets on *You should not use Pyridium for more than 48 hours. If so , follow up with your primary physician to review urine culture and ensure that antibiotic is adequate for infection *Be SURE to follow up anytime for new or worsening symptoms with your family doctor. AND in 48 hours for urine culture results with your family doctor, if you do not have a doctor then you may call back to the [facility] for urine culture results and further treatment. We do recommend that you choose and establish care with a Primary Care Physician. ?AND follow up with them ?in 10-14 days to repeat UA to ensure infection is resolved and blood no longer present *Be sure to let your PCP know that we sent urine cultures from the [facility] so they can follow up to ensure that you area the on the correct antibiotic Call your doctor office and make appointment for 48 hours (2 days from today) ?to follow up and get the results of your urine culture and further treatment Clinical Impressions Clinical Impression: UTI (urinary tract infection) Instructions Patient Instructions: DI for Urinary Tract Infection (UTI), Nitrofurantoin, Phenazopyridine Print Language Print Language: [place] Discharge ED Provider: Cheryl Lugo [facility] HPI General Stated complaint: poss UTI Mode of Arrival: Ambulatory Source of Information: Patient Time Seen by Provider: 04/30/24 18:32 Description of Symptoms (Recalled from Triage Doc. by RN): UTI S/S HEENT Symptoms (Recalled from RN notes): No Resp Symptoms (Recalled from RN notes): No Skin Symptoms (Recalled from RN notes): No MS Symptoms (Recalled from RN notes): No Functional Status (Recalled from RN notes): WNL History of Present Illness Provider Complaint: Patient states that she was seen and treated for UTI about a week ago and had finished her medication and was feeling better but today she started again with hematuria and feeling of urgency and frequency and achy like feeling in her lower back Denies hx of kidney stones, denies fever, denies chills, denies body aches Related Data Previous Rx's ?Medication ?Instructions ?Recorded nitrofurantoin 100 mg PO Q12H 7 days #14 caps 04/30/24 monohydrate/macrocrystals 100 mg capsule (Macrobid) phenazopyridine 200 mg tablet 200 mg PO Q8H pain 2 days #6 tabs 04/30/24 (Pyridium) Allergies Allergy/AdvReac Type Severity Reaction Status Date / Time Penicillins Allergy Intermediate I-HIVES Verified 06/22/22 16:06 Worker's Comp Is this a Worker's Comp case?: No [facility] Disclaimer: The information contained in this section may have been updated after the patient was seen, as this information can be updated by other users. 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 current occupational exposures/hazards: No caffeine: Yes ROS Obtained: Yes All systems reviewed & no additional complaints except as documented and Yes Systems reviewed as appropriate & no additional complaints except as documented Constitutional Constitutional: Reports system reviewed and no additional complaints, except as documented, Reports as per HPI, Denies body ache, Denies chills and Denies fever(s) ENT Ears, Nose, Mouth, and Throat: Reports system reviewed and no additional complaints, except as documented and Reports as per HPI Gastrointestinal Gastrointestingal: Reports system reviewed and no additional complaints, except as documented and as per HPI; Denies abdominal pain Genitourinary Female Genitourinary: Reports system reviewed and no additional complaints, except as documented, Reports as per HPI, Reports dysuria, Reports hematuria, Reports urinary frequency and Reports urinary urgency Musculoskeletal Musculoskeletal: Reports system reviewed and no additional complaints, except as documented and Reports as per HPI Physical Exam General General appearance: alert and in no apparent distress ENT ENT exam: Present mucous membranes moist Respiratory Respiratory exam: Present normal lung sounds bilaterally; Absent respiratory distress or wheezes Cardiovascular Cardiovascular exam: Present regular rate, normal rhythm and normal heart sounds Abdominal Exam Abdominal exam: Present soft and normal bowel sounds; Absent distention or tenderness Neurological Exam Neurological exam: Present alert, oriented X3 and normal gait Medical Decision Making Medical Records Screening: Per USPSTF and CDC recommendations, given the prevalence of disease in our region, it is our hospital?s policy to screen for HIV and viral Hepatitis for all patients aged 18 and over and those with ongoing risk factors. Joel Inquiry Pt receiving controlled substance: No Joel was queried for this patient: No Vital Signs: 04/30/24 18:28 Temperature 98.8 F Temperature Source Oral Pulse Rate [Left Brachial] 76 Respiratory Rate 20 Blood Pressure [Left Arm] 131/82 Blood Pressure Mean [Left Arm] 98 02 Sat by Pulse Oximetry 99 Lab Data Lab results reviewed: Yes I reviewed the patient's lab results. Orders (Tests/Meds): ORDERS Category Date Time Status UA [Urinalysis and Microscopic] Stat Lab 04/30/24 18:21 Ordered
[2024-04-30 18:34] LABS: Microscopic, Urine URINE MICROSCOPIC (MICROSCOPIC)
[2024-04-30 18:36] LABS: Appearance,Urine CLEAR (Clear); Bilirubin,Urine Negative (Negative); Blood, Urine 3+ (Negative); Color,Urine YELLOW (Yellow); Glucose,Urine (UA) Negative (Negative); Ketones,Urine Negative (Negative); Leukocyte Esterase,Urine 2+ (Negative); Nitrate,Urine Negative (Negative); Protein,Urine TRACE (Negative); Urobilinogen,Urine 0.2 EU/dl (0.2)
[2024-04-30 18:59] LABS: RBC,Urine TNTC #/hpf (0-3); WBC,Urine TNTC #/hpf (0-3)
[2024-04-30 19:00] LABS: Bacteria,Urine 1+ /lpf
[2024-04-30 19:21] VITALS: BP 131/82; PULSE 76; RESP 20; TEMP 37.1
[2024-05-02 21:28] LABS: Neisseria gonorrhoeae, NAA Negative (Negative)
== END 2024-04-30 19:21 | disposition home or self-care (01) ==
PROVIDERS: Emergency Provider Nurse Practitioner; PCP Nurse Practitioner Family
DX: N39.0 Urinary tract infection, site not specified (principal)
CPT/HCPCS: 81001; 87086; 87088; 87186; 87491; 87591; 99213; G0381

== ENCOUNTER 2025-02-24 13:09 | Outpatient (CLI) | payer MEDICAID, SELFPAY ==
--- OUTSIDE RECORDS SUMMARY | 2025-02-25 11:10 | XMS_ITS | Clinical Summary ---
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 Medical History Medical History Date Comments UTI (urinary tract infection) in the past Anxiety and depression Family History Medical History Relation Name Comments No Known Problems Mother Anesth Problems Neg Hx Relation Name Status Comments Father Mother Alive Social History Tobacco Use Types Packs/Day Years Used Date Smoking Tobacco: Every Day Cigarettes 1 11 Smokeless Tobacco: Never Tobacco Cessation:Ready to Q uit: Yes Comments:trying to quit Alcohol Use Standard Drinks/Week Comments Yes 0 (1 standard drink = 0.6 oz pur e alcohol) rarely Comments No Sex and Gender Information Value Date Recorded Sex Assigned at Not on file Legal Sex Female 3:18 PM EDT Gender Identity Not on file Sexual Orientation Not on file Obstetrics History Last Filed Vital Signs Vital Sign Reading Time Taken Comments Blood Pressure 112/58 11/21/2018 10:41 AM EDT Pulse 101 11/21/2018 10:41 AM EDT Temperature 36.1 C (97 F) 11/21/2018 10:41 AM EDT Respiratory Rate 16 11/21/2018 10:41 AM EDT Oxygen Saturation 100% 11/21/2018 10:41 AM EDT Inhaled Oxygen Concentration - - Weight 53.3 kg (117 lb 9 oz) 11/21/2018 6:53 AM EDT Height 165.1 cm (5' 5 ) 11/21/2018 6:53 AM EDT Body Mass Index 19.56 11/21/2018 6:53 AM EDT Plan of Treatment Health Maintenance Due Date Last Done Comments Annual Wellness Exam 1991 DTaP/TDaP/Td (1 - Tdap) 2007 Hepatitis B Vaccine (1 of 3 - 19+ 3-dose series) 2007 Pap Smear 03/03/2017 03/03/2014 Cervical Cancer Screening 2018 HPV/Pap Cotest 2018 COVID-19 Vaccine (2023-2 5 season) 2024 Influenza Vaccine (#1) 2025 Meningococcal B Vaccine Aged Out No l onger eligible based on patient's age to complete this topic Pneumococcal Vaccine 0-49 Aged Out No longer eligible based on patient's age to complete this topic Medical Devices Implanted Type Area Hand Glove Cleaner Device Identifier Shelf Expiration Date Model / Serial / Lot Implant Breast Moderate Plus Profile 275cc - [id number] Implanted:Qty: 1 on 11/21/2018 by Kang Hernandez MD at [facility] Right: Breast MENTOR:AESTHETIC S PRDT 07/18/2023 [id number] / [id number] / [id number] Description:surgeon brought own implants Impl Brst 11.4cm Memorygel P4.6cm Hi Prfl Rnd Skip Bs Marine Gel - [id number] Implanted:Qty: 1 on 11/21/2018 by Kang Hernandez MD at [facility] Left: Breast MENTOR:AESTHETIC S PRDT 05/12/2023 [id number] / [id number] / [id number] Description:surgeon brought own implants Procedures Procedure Name Priority Date/Time Associated Diagnosis Comments MASS SPEC CYTOLOGY REPORT Routine 03/03/2014 4 :34 AM EDT from Last 3 Months or Most Recently Relevant to Health Maintenance Results * MASS SPEC CYTOLOGY REPORT (03/03/2014 4:34 AM EDT) Tire Building Supervisor Cytology Report PATIENT NAME:LEXUS SALCEDO Tire Building Supervisor Cytology Report Accession Number Collected Date/Time Received Date/Time [id number] 03/03/14 04:34 EDT 03/04/14 04:19 EDT GY Specimen Source Specimen Vag/Cerv/Endocx?: Cervical/Endocervi amy Statement of Adequacy Satisfactory for Evaluation. Transformation Zone Present. Diagnosis NEGATIVE FOR INTRAEPITHELIAL LESION OR MALIGNANCY Trichomonas vaginalis organisms present. Comment Fungal organisms morphologically consistent with Berta species present. The Pap Smear is a screening test that aids in the detection of cervical cancer and cancer precursors. Both false positive and false negative results can occur. The test should be used at regular intervals, and positive results should be confirmed before definitive therapy. Processed using the [employer] Young Turks[employer] Principal Investigator automated cytology screening device (Prospect[employer]ise). Product Control And Logistics Analyst: RAFAEL 03/09/2014 Completed by: BLANCHE Craven (Electronically signed by) 03/09/2014 [facility] 03/03/2014 4:34 AM EDT [facility] PATHOLOGY ORDERABLES Final Result Performing Organization Address City/State/[facility] Co de Phone Number [facility] [address] [place] [address] from Last 3 Months or Most Recently Relevant to Health Maintenance Insurance ANTHEM PPO [employer] Care Teams Hog Counter Relationship Specialty Start Date End Date Nonstaff, Referring PCP - General 07/28/17
--- OUTSIDE RECORDS SUMMARY | 2025-02-25 11:10 | XMS_ITS | Clinical Summary ---
Author Organization [facility] Address [address] [place] [address] Care Team Providers Care Biology Faculty Member Name Role Phone Unavailable Primary Care Provider Unavailabl e Social History Tobacco Use Types Packs/Day Years Used Date Smoking Tobacco: Never Assessed Abuse Screen Answer Date Recorded Unsafe at Home or Work/School Not on file Feels Threatened by Someone? Not on file 04/2023 Does Anyone Keep You from Co ntacting Others or Doint Things Outside the Home? Not on file 04/24/2023 Physical Sign of Abuse Present Not on file 1 Housing Stability Answer Date Recorded Current Living Arrangements Not on file 04/15 Potentially Unsafe Housing Conditions Not on eduardo e 04/24/2023 Family and Community Support Answer Ac e Recorded Help with Day-to-Day Activities Not on file 04/24/2023 Lonely or Isolated Not on file 04/24/2023 Employment Answer Date Recorded Do you want help finding or keeping work or a lima b? Not on file 04/24/2023 Disabilities Answer Date Recorded Concentrating, Remembering, or Making Decisions Difficulty Not on file 04/24/2023 Doing Errands Independently Difficulty Not on fi le 04/24/2023 Education Answer Date Recorded Help with school or training? Not on file Preferred Language Not on file 04/24/2023 Comments Unknown Sex and Gender Information Value Date Recorded Sex Assigned at Not on file Legal Sex Female 1:51 PM EDT Gender Identity Not on file Sexual Orientation Not on file Plan of Treatment Health Maintenance Due Date Last Done Comments ANNUAL PHYSICAL 1988 Annual Gynecologic Pelvic an d Breast Exam 1988 HEPATITIS C SCREENING 1988 TDAP/TD VACCINES (1 - Tdap) 2007 COVID-19 Vaccine (2023-2 5 season) 2024 INFLUENZA VACCINE 04/15/2025 Pneumococcal Vaccine 0-49 Aged Out No longer eligible based on patient's age to complete this topic
== END 2025-02-24 23:59 | disposition home or self-care (01) ==
LOC: LAB.DROPOF 02-25 11:05
PROVIDERS: PCP Nurse Practitioner Family; Visit Provider Nurse Practitioner Family
DX: N39.0 Urinary tract infection, site not specified (principal)
CPT/HCPCS: 87086

== ENCOUNTER 2025-05-09 10:43 | Outpatient (CLI) | payer SELFPAY ==
--- OUTSIDE RECORDS SUMMARY | 2025-05-11 10:59 | XMS_ITS | Clinical Summary ---
Author Organization [facility] Address [address] [place] [address] Care Team Providers Care Documentation Consultant Name Role Phone Unavailable Primary Care Provider [...] 1988 TDAP/TD VACCINES (1 - Tdap) 2007 INFLUENZA VACCINE 02/13/2025 Pneumococcal Vaccine 0-49 Aged Out No longer eligible based on patient's age to complete this topic
--- OUTSIDE RECORDS SUMMARY | 2025-05-11 10:59 | XMS_ITS | Clinical Summary ---
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 Name Role Phone Nonstaff, Referring Primary Care [...] AUGEMENTATION ; Surgeon: Kang Hernandez MD; Location: [facility]; Service: Plastics Medical devices from this surgery [...] on file Sexual Orientation Not on file Last Filed Vital Signs Vital Sign Reading [...] Screening 2018 HPV/Pap Cotest 2018 COVID-19 Vaccine (2024-2 6 season) 2025 Influenza Vaccine (#1) 2025 Meningococcal B Vaccine Aged Out No l onger eligible based on patient's age to complete this topic Pneumococcal Vaccine 0-49 Aged Out No longer eligible based on patient's age to complete this topic Medical Devices Implanted Type Area Specialist Physician Device Identifier Shelf Expiration Date Model / Serial / Lot Implant Breast Moderate Plus Profile 275cc - [id number] Implanted:Qty: 1 on 11/21/2018 by Kang Hernandez MD at [facility] Right: Breast MENTOR:AESTHETIC S PRDT 07/18/2023 [id number] / [id number] / [id number] Description:surgeon brought own implants Impl Brst 11.4cm Memorygel P4.6cm Hi Prfl Rnd Skip Bs Marine Gel - [id number] Implanted:Qty: 1 on 11/21/2018 by Kang Hernandez MD at [facility] Left: Breast MENTOR:AESTHETIC S PRDT 05/12/2023 [id number] / [id number] / [id number] Description:surgeon brought own implants Procedures Procedure Name Priority Date/Time Associated Diagnosis Comments QA AUDITOR CYTOLOGY REPORT Routine 03/03/2014 4 :34 AM EDT from Last 3 Months or Most Recently Relevant to Health Maintenance Results * QA AUDITOR CYTOLOGY REPORT (03/03/2014 4:34 AM EDT) [facility] Cytology Report PATIENT NAME:LEXUS SALCEDO [facility] Cytology Report Accession Number Collected Date/Time Received Date/Time [id number] 03/03/14 04:34 EDT 03/04/14 04:19 EDT GY [...] confirmed before definitive therapy. Processed using the TelensiusPrep Assistant Cross Country Coach automated cytology screening device (iRates). 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
== END 2025-05-09 23:59 ==
LOC: LAB.DROPOF 05-11 10:44
PROVIDERS: Visit Provider Nurse Practitioner Family
DX: R35.0 Frequency of micturition (principal)
CPT/HCPCS: 87086